=== PATIENT | male | born 1950 | race Caucasian/White ===

== ENCOUNTER 2017-12-22 16:04 | Inpatient (IN) ==
[2017-12-22] MEDS ORDERED: Sodium Chlor 0.9% Inj 500 ML IV.SIG ONE ×2 (17:16→18:15)
--- NOTE | 2017-12-22 17:22 | ED ---
HPI General Chief Complaint: Fever Stated Complaint: Weakness/fever Time Seen by Provider: 12/22/17 16:52 Source: patient, family, RN notes reviewed and old records reviewed Mode of arrival: ambulatory Limitations: no limitations History of Present Illness HPI Narrative: 67-year-old male presents to the emergency department for evaluation of generalized weakness, shortness of breath, abdominal pain, diarrhea, vomiting. Patient states he has been having diarrhea for several months. However, today, he started vomiting. He also reports abdominal pain that he states is from his diarrhea. Patient also reports cough and congestion as well. He states he had a fever up to 103. He went and saw his primary care physician approximately 1-2 hours prior to arrival who referred him to the emergency department. Patient does have history of A. fib on Pradaxa, CHF, diabetes. MD complaint: fever, malaise and weakness Onset (ago): day(s) Maximum Temperature: 103 F Temperature Source: oral Associated symptoms: chills, cough, shortness of breath, abdominal pain, nausea , vomiting and diarrhea Relieving factors: nothing Exacerbating factors: nothing Treatments prior to arrival fever: none Related Data Home Medications Medication Instructions Recorded Confirmed apixaban [Eliquis] 5 mg PO BID 12/22/17 12/22/17 atenolol [Tenormin] 50 mg PO DAILY 12/22/17 12/22/17 colchicine [Colcrys] 0.6 mg PO DAILY 12/22/17 12/22/17 loratadine [Claritin] 10 mg PO DAILY 12/22/17 12/22/17 metformin 500 mg PO BID 12/22/17 12/22/17 spironolacton-hydrochlorothiaz 1 tab PO DAILY 12/22/17 12/22/17 Allergies Allergy/AdvReac Type Severity Reaction Status Date / Time No Known Allergies Allergy Unverified 12/22/17 17:16 Review of Systems Except as stated in HPI: all other systems reviewed are negative [facility] Medical History Medical History Atrial fibrillation (Acute) Chronic kidney disease (Acute) Gout (Acute) Heart failure (Acute) Mitral valve insufficiency (Acute) Morbid obesity (Acute) Rhinitis (Acute) Type 2 diabetes mellitus (Acute) Social History Social History Substance History: No History of Abuse Second Hand Smoke Exposure: No Smoking Status: Never smoker Tobacco Type: Cigarettes How Often Do You Have a Drink Containing Alcohol: Monthly or less Recent Travel in [facility] within the Last 8 Weeks: No Recent Out of Country Travel within the Last 8 Weeks: No Exam Narrative Exam Narrative: GENERAL: Well-nourished, well-developed obese male patient, afebrile. SKIN: Focused skin assessment warm/dry. Patient does have erythema to the right lower extremity. Patient states that this is chronic. However, is warm to palpation HEAD: Normocephalic. Atraumatic EYES: No scleral icterus. No injection or drainage. NECK: Supple, trachea midline. No JVD or lymphadenopathy. CARDIOVASCULAR: Regular rate and rhythm without murmurs, gallops, or rubs. RESPIRATORY: Breath sounds equal bilaterally. No accessory muscle use. Lung sounds diminished GASTROINTESTINAL: Abdomen obese, soft. MUSCULOSKELETAL: No cyanosis, or edema. BACK: Nontender without obvious deformity. No CVA tenderness. Course Initial Documented Vital Signs Temperature 98.3 F 12/22/17 16:43 Pulse Rate 122 H 12/22/17 16:43 Respiratory Rate 24 12/22/17 16:43 Blood Pressure 138/60 12/22/17 16:43 Pulse Oximetry 96 12/22/17 16:43 Last Documented Vital Signs Temperature 98.6 F 12/23/17 04:00 Pulse Rate 92 H 12/23/17 04:00 Respiratory Rate 20 12/23/17 04:00 Blood Pressure 107/51 L 12/23/17 04:00 Pulse Oximetry 95 12/23/17 04:00 Critical Care Time Critical Care Time: Yes Total Critical Care Time: 30 Attestation: Time to perform other separately billable procedures was not included in the critical care time. My time did not include minutes spent treating any other patients simultaneously or on activities that did not directly contribute to the patient's treatment. The services I provided to this patient were to treat and/or prevent clinically significant deterioration due to sepsis I provided critical care services requiring my management, as noted below: Chart data review, documentation time, medication orders and management, vital sign assessments/reviewing monitor data, ordering and reviewing lab tests, ordering and interpreting/reviewing x-rays and diagnostic studies, care of the patient and discussion of the patient with the admitting physicians Medical Decision Making SUBHA Attestation SUBHA supervised visit: Yes Attestation: I, Dr. Soto, have reviewed the advance practice practitioner's documentation and am in agreement, met with the patient face to face, made the diagnosis, and the medical decision making was done by me. *My assessment and Findings: This patient presents with a chief complaint of fever. He looks dehydrated. Septic workup is in process. Please see Swati Mayorga NP's note for a more detailed H&P, final diagnosis and disposition MDM Narrative Medical decision making narrative: 67-year-old male presents to the emergency department for evaluation of diarrhea, vomiting, fever, shortness of breath. He is tachycardic in triage. He states he has had a fever up to 103 today. IV access established. EKG, CBC, CMP, lipase, magnesium, CK, troponin, lactic acid , PTT, PT/INR, UA, blood cultures 2 were ordered and pending. Chest x-ray and CT abdomen/pelvis with IV contrast are ordered and pending. Patient is given normal saline 500 mL bolus. He is not given 30 mL's per kilogram due to history of CHF. Patient is given Zofran 4 mg ODT. EKG shows atrial fibrillation, HR 122, right BBB. CBC shows leukocytosis 19.7, band neutrophils 35%, toxic granulation. CMP shows hyponatremia 129, BUN 38, creatinine 2.46, hyperglycemia 401. Lactic acid is 4.7. Magnesium is 1.2. CK is 48. Troponin is less than 0.02. PTT is 29.8. PT/INR is 11.1/1.1. UA is still pending. Chest x-ray shows mild to moderate cardiomegaly, no definite evidence of pneumonia. CT abdomen/pelvis shows no acute abnormality. Patient is given another NS 500 ml bolus and started on Vancomycin 1 gm IV, Zosyn 3.375 gm IV. Patient will be admitted. Differential Diagnosis Differential Diagnosis: sepsis vs. pneumonia vs. diverticulitis vs UTI Medical Records Medical records reviewed: Yes I reviewed the patient's medical records. Lab Data Result diagrams: 12/22/17 17:04 12/22/17 17:04 Lab Results 12/22/17 12/22/17 12/22/17 Range/Units 17:03 17:04 17:04 WBC 19.7 H (4.0-11.0) th/mm3 RBC 4.69 (4.50-5.90) mil/mm3 Hgb 14.4 (13.0-17.0) gm/dL Hct 42.5 (39.0-51.0) % MCV 90.5 (80.0-100.0) fL MCH 30.8 (27.0-34.0) pg MCHC 34.0 (32.0-36.0) % RDW 14.3 (11.6-17.2) % Plt Count 188 (150-450) th/mm3 MPV 8.8 (7.0-11.0) fL Prelim Diff (Auto) Manual diff required WBC Differential Manual diff final Seg Neuts % (Manual) 60 (16-70) % Band Neuts % (Manual) 35 H (0-6) % Lymphocytes % (Manual) 1 L (9-44) % Monocytes % (Manual) 4 (0-8) % Abs Neuts (Manual) 18.7 H (1.8-7.7) th/mm3 Differential Comment . Toxic Granulation 1+ H (None) Platelet Estimate Normal (Normal) Platelet Morphology Enlarged H (Normal) PT 11.1 (9.8-11.6) sec INR 1.1 Ratio APTT 29.8 (24.3-30.1) sec Sodium (136-145) meq/L Potassium (3.5-5.1) meq/L Chloride (98-107) meq/L Carbon Dioxide (21.0-32.0) meq/L Anion Gap (5-15) meq/L BUN (7-18) mg/dL Creatinine (0.60-1.30) mg/dL Estimated GFR (>89) mL/min POC Glucose 429 H (68-110) mg/dl Random Glucose (74-106) mg/dL Lactic Acid (0.4-2.0) mmol/L Calcium (8.5-10.1) mg/dL Magnesium (1.5-2.5) mg/dL Total Bilirubin (0.2-1.0) mg/dL AST (15-37) U/L ALT (12-78) U/L Alkaline Phosphatase (45-117) U/L Total Creatine Kinase (39-308) U/L Troponin I (0.02-0.05) ng/mL Total Protein (6.4-8.2) g/dL Albumin (3.4-5.0) g/dL Lipase (73-393) U/L Urine Color (Yellw/Straw) Urine Clarity (Clear) Urine pH (5.0-8.5) Ur Specific [place] (1.002-1.035) Urine Protein (Neg-Trace) mg/dL Urine Glucose (UA) (Negative) mg/dL Urine Ketones (Negative) mg/dL Urine Occult Blood (Negative) Urine Nitrate (Negative) Urine Bilirubin (Negative) Urine Urobilinogen (Less than 2) mg/dL Ur Leukocyte Esterase (Negative) Urine RBC (0-3) /hpf Urine WBC (0-5) /hpf Ur Squamous Epith Cells (0-5) /hpf Amorphous Sediment (None) /hpf Urine Bacteria (None) /hpf Granular Casts (None) /lpf Urine Mucus (Occasional) /lpf Micro UA Comment Urine Culture Comments Stl C.difficile Tox PCR (Negative) St C. diff Tox Epid 027 (Negative) 12/22/17 12/22/17 12/22/17 Range/Units 17:04 17:30 19:45 WBC (4.0-11.0) th/mm3 RBC (4.50-5.90) mil/mm3 Hgb (13.0-17.0) gm/dL Hct (39.0-51.0) % MCV (80.0-100.0) fL MCH (27.0-34.0) pg MCHC (32.0-36.0) % RDW (11.6-17.2) % Plt Count (150-450) th/mm3 MPV (7.0-11.0) fL Prelim Diff (Auto) WBC Differential Seg Neuts % (Manual) (16-70) % Band Neuts % (Manual) (0-6) % Lymphocytes % (Manual) (9-44) % Monocytes % (Manual) (0-8) % Abs Neuts (Manual) (1.8-7.7) th/mm3 Differential Comment Toxic Granulation (None) Platelet Estimate (Normal) Platelet Morphology (Normal) PT (9.8-11.6) sec INR Ratio APTT (24.3-30.1) sec Sodium 129 L (136-145) meq/L Potassium 4.6 (3.5-5.1) meq/L Chloride 93 L (98-107) meq/L Carbon Dioxide 22.2 (21.0-32.0) meq/L Anion Gap 14 (5-15) meq/L BUN 38 H (7-18) mg/dL Creatinine 2.46 H (0.60-1.30) mg/dL Estimated GFR 27 L (>89) mL/min POC Glucose (68-110) mg/dl Random Glucose 401 H (74-106) mg/dL Lactic Acid 4.7 H* 4.5 H* (0.4-2.0) mmol/L Calcium 9.0 (8.5-10.1) mg/dL Magnesium 1.2 L (1.5-2.5) mg/dL Total Bilirubin 0.8 (0.2-1.0) mg/dL AST 27 (15-37) U/L ALT 35 (12-78) U/L Alkaline Phosphatase 104 (45-117) U/L Total Creatine Kinase 48 (39-308) U/L Troponin I Less than 0.02 L (0.02-0.05) ng/mL Total Protein 7.9 (6.4-8.2) g/dL Albumin 3.6 (3.4-5.0) g/dL Lipase 149 (73-393) U/L Urine Color (Yellw/Straw) Urine Clarity (Clear) Urine pH (5.0-8.5) Ur Specific [place] (1.002-1.035) Urine Protein (Neg-Trace) mg/dL Urine Glucose (UA) (Negative) mg/dL Urine Ketones (Negative) mg/dL Urine Occult Blood (Negative) Urine Nitrate (Negative) Urine Bilirubin (Negative) Urine Urobilinogen (Less than 2) mg/dL Ur Leukocyte Esterase (Negative) Urine RBC (0-3) /hpf Urine WBC (0-5) /hpf Ur Squamous Epith Cells (0-5) /hpf Amorphous Sediment (None) /hpf Urine Bacteria (None) /hpf Granular Casts (None) /lpf Urine Mucus (Occasional) /lpf Micro UA Comment Urine Culture Comments Stl C.difficile Tox PCR (Negative) St C. diff Tox Epid 027 (Negative) 12/22/17 12/23/17 Range/Units 20:10 01:30 WBC (4.0-11.0) th/mm3 RBC (4.50-5.90) mil/mm3 Hgb (13.0-17.0) gm/dL Hct (39.0-51.0) % MCV (80.0-100.0) fL MCH (27.0-34.0) pg MCHC (32.0-36.0) % RDW (11.6-17.2) % Plt Count (150-450) th/mm3 MPV (7.0-11.0) fL Prelim Diff (Auto) WBC Differential Seg Neuts % (Manual) (16-70) % Band Neuts % (Manual) (0-6) % Lymphocytes % (Manual) (9-44) % Monocytes % (Manual) (0-8) % Abs Neuts (Manual) (1.8-7.7) th/mm3 Differential Comment Toxic Granulation (None) Platelet Estimate (Normal) Platelet Morphology (Normal) PT (9.8-11.6) sec INR Ratio APTT (24.3-30.1) sec Sodium (136-145) meq/L Potassium (3.5-5.1) meq/L Chloride (98-107) meq/L Carbon Dioxide (21.0-32.0) meq/L Anion Gap (5-15) meq/L BUN (7-18) mg/dL Creatinine (0.60-1.30) mg/dL Estimated GFR (>89) mL/min POC Glucose (68-110) mg/dl Random Glucose (74-106) mg/dL Lactic Acid (0.4-2.0) mmol/L Calcium (8.5-10.1) mg/dL Magnesium (1.5-2.5) mg/dL Total Bilirubin (0.2-1.0) mg/dL AST (15-37) U/L ALT (12-78) U/L Alkaline Phosphatase (45-117) U/L Total Creatine Kinase (39-308) U/L Troponin I (0.02-0.05) ng/mL Total Protein (6.4-8.2) g/dL Albumin (3.4-5.0) g/dL Lipase (73-393) U/L Urine Color [place] (Yellw/Straw) Urine Clarity Cloudy H (Clear) Urine pH 5.0 (5.0-8.5) Ur Specific [place] 1.018 (1.002-1.035) Urine Protein 30 H (Neg-Trace) mg/dL Urine Glucose (UA) 500 or greater (Negative) mg/dL Urine Ketones Trace (Negative) mg/dL Urine Occult Blood Small H (Negative) Urine Nitrate Negative (Negative) Urine Bilirubin Negative (Negative) Urine Urobilinogen Less than 2 (Less than 2) mg/dL Ur Leukocyte Esterase Negative (Negative) Urine RBC 5 H (0-3) /hpf Urine WBC 5 (0-5) /hpf Ur Squamous Epith Cells <1 (0-5) /hpf Amorphous Sediment Few H (None) /hpf Urine Bacteria Rare H (None) /hpf Granular Casts 3 (None) /lpf Urine Mucus Few H (Occasional) /lpf Micro UA Comment Culture not ind Urine Culture Comments Culture not ind Stl C.difficile Tox PCR Negative (Negative) St C. diff Tox Epid 027 Negative (Negative) Imaging Data Radiologist's impression: Abdomen/Pelvis CT 12/22/17 17:16 CONCLUSION: Chest X-Ray 12/22/17 17:16 CONCLUSION: ECG Data EKG Prior to Arrival: No Attestation: I personally reviewed and interpreted this ECG as follows: Discharge Plan Discharge Disposition Patient Disposition: 30 Still Patient Discharge Details Diagnosis: Sepsis, Cellulitis, Abdominal pain, vomiting, and diarrhea Physicians Team ED Provider: Salome Soto ED Midlevel Provider: Swati Mayorga Primary Care Provider: Patsy Ernst Attending Provider: Merlyn Driscoll Status ED Status: Left Department Discharge Information Discharge Date/Time: 12/22/17 22:51
[2017-12-22 17:44] LABS: Hematocrit 42.5 % (39.0-51.0); Hemoglobin 14.4 gm/dL (13.0-17.0); Mean Corpuscular Hemoglobin 30.8 pg (27.0-34.0); Mean Corpuscular Volume 90.5 fL (80.0-100.0); Mean Platelet Volume 8.8 fL (7.0-11.0); Platelet Count 188 th/mm3 (150-450); Red Blood Count 4.69 mil/mm3 (4.50-5.90); Red Cell Distribution Width 14.3 % (11.6-17.2); White Blood Count 19.7 th/mm3 (4.0-11.0)
[2017-12-22 17:50] LABS: Activated Partial Thrombo Time 29.8 sec (24.3-30.1); INR 1.1 Ratio; Prothrombin Time 11.1 sec (9.8-11.6)
--- NOTE | 2017-12-22 17:57 | XR ---
EXAM DATE: 12/22/2017 5:55 PM EDT AGE/SEX: 67 years / Male INDICATIONS: Fever starting today CLINICAL DATA: This is the patient's initial encounter. Patient reports that signs and symptoms have been present for 1 day and indicates a pain score of 0/10. MEDICAL/SURGICAL HISTORY: None. None. COMPARISON: No prior exams available for comparison. FINDINGS: 2 AP portable erect views of the chest were obtained and demonstrate mild to moderate cardiomegaly. N o focal infiltrate or effusion is identified. There are atherosclerotic changes in the aorta. The bon y thorax is intact. CONCLUSION: 1. Mild to moderate cardiomegaly. 2. No definite evidence of pneumonia. Electronically signed by: Johnny Amaro MD 12/22/2017 5:56 PM EDT
[2017-12-22 18:09] LABS: Alanine Aminotransferase 35 U/L (12-78); Albumin 3.6 g/dL (3.4-5.0); Alkaline Phosphatase 104 U/L (45-117); Anion Gap 14 meq/L (5-15); Aspartate Aminotransferase 27 U/L (15-37); Blood Urea Nitrogen 38 mg/dL (7-18); Carbon Dioxide 22.2 meq/L (21.0-32.0); Chloride 93 meq/L (98-107); Glomerular Filtration Rate 27 mL/min (>89); Glucose,Random 401 mg/dL (74-106); Lipase 149 U/L (73-393); Magnesium 1.2 mg/dL (1.5-2.5); Potassium 4.6 meq/L (3.5-5.1); Sodium 129 meq/L (136-145); Total Protein 7.9 g/dL (6.4-8.2)
[2017-12-22 18:12] LABS: Creatine Kinase 48 U/L (39-308)
[2017-12-22] MEDS ORDERED: Vancomycin Inj 1,000 MG in Sodium Chlor 0.9% Inj 250 ML IV.SIG ONE (18:16)
[2017-12-22] MEDS ORDERED: Piperacil/Tazo 3.375 GM Premix 50 ML IV.SIG ONE (18:16)
[2017-12-22 18:43] LABS: Lymphocytes 1 % (9-44); Monocytes 4 % (0-8); Toxic Granulation 1+
[2017-12-22 18:44] LABS: Platelet Estimate Normal (Normal)
[2017-12-22] MEDS ORDERED: Vancomycin Inj 1 GM/200 ML PIGGYBACK IV.SIG ONE (18:50)
--- NOTE | 2017-12-22 20:03 | CT ---
EXAM DATE: 12/22/2017 7:05 PM EDT AGE/SEX: 67 years / Male INDICATIONS: Abdominal pain, vomiting for four months. CLINICAL DATA: This is the patient's initial encounter. Patient reports that signs and symptoms have been present for 4 - 6 months and indicates a pain score of 4/10. MEDICAL/SURGICAL HISTORY: Congestive heart failure. Cardiovascular disease. Diabetes. None. RADIATION DOSE: 35.53 CTDI (mGy) ; Patient body habitus COMPARISON: No prior exams available for comparison. TECHNIQUE: Multiple contiguous axial images were obtained through the abdomen. Images were obtained using multiple row detector helical technique. Using automated exposure control and adjustment of the mA and/or kV according to patient size, radiation dose was kept as low as reasonably achievable to o btain optimal diagnostic quality images. DICOM format image data is available electronically for rev iew and comparison. FINDINGS: Lower Lungs: There is linear density at the lateral left base likely related to scarring or atelectas is. Liver: Is diffuse decreased attenuation to the liver. No focal hepatic lesions are seen. The gallblad yesica is unremarkable. Spleen: Homogeneous density without enlargement. Pancreas: Unremarkable without mass or calcification. Kidneys: There is a 3.3 cm exophytic mass off the posterior mid right kidney. There also appears to be a 2.6 cm low-density mass at the inferior aspect of the left kidney best seen on the coronal image s. There is a 5.5 cm mass at the lateral mid to inferior left kidney. No hydronephrosis is seen on ei ther side. No renal stones are seen. Adrenal Glands: Unremarkable. Aorta: The aorta and proximal iliac vessels are grossly unremarkable without aneurysmal dilation. Atherosclerotic calcifications are present. Bowel/Mesentery: Scattered colonic diverticula especially in the sigmoid region. Abdominal Wall: Intact. Retroperitoneum: No evidence of adenopathy in the retrocrural, para-aortic, or deep pelvic regions. Normal-sized lymph nodes are seen. Bladder: Contours are smooth. Reproductive Organs: No abnormal masses or calcifications seen. Inguinal: There is fat within the inguinal canal regions bilaterally being more prominent on the rig ht than the left. No bowel seen in these regions. Bony Structures: There is degenerative change in the lumbar spine. There is a 4.1 cm lipoma seen in the proximal lateral left thigh musculature. 1. No acute abnormality seen. 2. Hepatic steatosis. 3. Bilateral renal masses. These are nonspecific on this noncontrast CT examination. They may repres ent cysts. They could be further evaluated some point within ultrasound examination or contrast-enhan saleem study. This could be performed as an outpatient. 4. Scattered colonic diverticula. 5. Prominent fat within the inguinal canals which could suggest hernias. No bowel is seen in these r egions. Electronically signed by: Macario Marquez MD 12/22/2017 8:02 PM EDT
[2017-12-22] MEDS ORDERED: Acetaminophen 325 MG Tablet PO PRN (21:53)
[2017-12-22] MEDS ORDERED: Dextrose 50% in Water 50 ML Vial IV.PUSH PRN (21:57)
[2017-12-22] MEDS ORDERED: Vancomycin Consult Pharmacy 1 EACH OTHER SCH (22:00)
[2017-12-22] MEDS ORDERED: Mag Sulf 1 gm/100 ml Premix 100 ML IV.SIG ONE (22:00)
[2017-12-22] MEDS ORDERED: Heparin - SQ 10,000 UNITS/ML Vial SQ SCH (22:00)
--- NOTE | 2017-12-22 22:03 | ECG ---
Date Performed: 12/22/2017 Time Performed: 17:06:48 PTAGE: 67 years EKG: ATRIAL FIBRILLATION WITH RAPID VENTRICULAR RESPONSE INDETERMINATE AXIS RIGHT BUNDLE BRANCH BLOCK ABNORMAL ECG NO PREVIOUS TRACING DOCTOR: Mitchell Thomas Interpretating Date/Time 12/22/2017 22:02:03
--- NOTE | 2017-12-22 23:22 | P.HP ---
History of Present Illness Service: [facility] Primary Care Physician: Patsy Ernst MD History of Present Illness: 67-year-old male with a past medical history significant for atrial fibrillation , anticoagulated on Eliquis, chronic kidney disease, gout, CHF and type 2 diabetes mellitus presents to the emergency department for evaluation of generalized weakness, shortness of breath, abdominal pain, diarrhea and vomiting. Patient reports he has had diarrhea for several months however today he started vomiting. He reports a crampy abdominal pain that is associated with his diarrhea. He also complains of a cough and congestion with associated shortness of breath. He reports a fever at home to 103. He saw his primary care physician today who recommended further evaluation in the emergency department. The patient denies any chest pain. Inpatient Certification: I certify that the inpatient services were ordered in accordance with Medicare regulations governing the order. This includes certification that hospital inpatient services are reasonable and necessary and in the case of services not specified as inpatient-only under 42 CFR 419.22(n), that they are appropriately provided as inpatient services in accordance to with the 2-midnight benchmark under 43 CFR 412.3(e) Estimated Total Length of Stay (Days): 2 Plans for Post Hospital Care: Home Review of Systems All other systems reviewed negative except as stated in HPI [facility] - History History Provided By: Patient - Medical History Medical History: Medical History (Last Updated 12/22/17 @ 19:15 by Maral Mancuso) Atrial fibrillation Chronic kidney disease Gout Heart failure Mitral valve insufficiency Morbid obesity Rhinitis Type 2 diabetes mellitus - Tobacco History Second Hand Smoke Exposure: No Tobacco Use In Past 30 Days: No Smoking Status: Never smoker Tobacco Type: Cigarettes - Alcohol History How Often Do You Have a Drink Containing Alcohol: Monthly or less - Substance Use History Substance History: No History of Abuse - Substance Use Type Marijuana Status: Active - Travel History Recent Travel in the [place] Within the Last 8 Weeks: No Recent Travel Out of the Country Within the Last 8 Weeks: No - Immunization History Tetanus Immunization: Unsure Hx Influenza Vaccine This Season: Yes Medications and Allergies Active Medications: Active Medications Acetaminophen (Tylenol) 650 mg PO Q4H PRN PRN Reason: Temp > 100.4 Apixaban (Eliquis) 5 mg PO BID [facility] Atenolol (Tenormin) 50 mg PO DAILY [facility] Colchicine (Colcrys) 0.6 mg PO DAILY [facility] Dextrose (D50w Vial) 50 ml IV.PUSH UNSCH PRN PRN Reason: PER HYPOGLYCEMIA PROTOCOL Glucagon (Glucagon Inj) 1 mg OTHER PRN PRN PRN Reason: for Hypoglycemia Protocol HCTZ/Spironolactone (Aldactazide 25/25 Mg) 1 tab PO DAILY [facility] Piperacillin/Tazobactam/Dextrose (Zosyn 3.375 Gm Premix) 50 mls @ 100 mls/hr IV.SIG Q6H [facility] Pharmacy Profile Note (Vancomycin Consult Pharmacy) 0 mls @ 0 mls/hr OTHER UNSCH [facility] Vancomycin HCl 2,000 mg/ (Sodium Chloride) 520 mls @ 250 mls/hr IV.SIG Q24H [facility] Sodium Chloride (Ns Inj) 1,000 mls @ 100 mls/hr IV.CONT .Q10H [facility] Insulin Aspart (Novolog Insulin Correctional Sugar Inj) 0 unit SQ ACHS [facility]; Protocol Loratadine (Claritin) 10 mg PO DAILY [facility] Miscellaneous Information ([facility] Ordered Lab Info) 0 each OTHER ONCE ONE Stop: 12/25/17 07:46 Ondansetron HCl (Zofran Odt) 4 mg PO Q6H PRN PRN Reason: NAUSEA OR VOMITING Allergies Allergy/AdvReac Type Severity Reaction Status Date / Time No Known Allergies Allergy Unverified 12/22/17 17:16 Home Medications Medication Instructions Recorded Confirmed Type apixaban [Eliquis] 5 mg PO BID 12/22/17 12/22/17 History atenolol [Tenormin] 50 mg PO DAILY 12/22/17 12/22/17 History colchicine [Colcrys] 0.6 mg PO DAILY 12/22/17 12/22/17 History loratadine [Claritin] 10 mg PO DAILY 12/22/17 12/22/17 History metformin 500 mg PO BID 12/22/17 12/22/17 History spironolacton-hydrochlorothiaz 1 tab PO DAILY 12/22/17 12/22/17 History Exam Vital signs: Vital Signs 12/22/17 16:43 12/22/17 17:00 12/22/17 17:16 Temperature 98.3 F 98 F Pulse Rate 122 H 127 H Respiratory Rate 24 20 Blood Pressure 138/60 116/62 Pulse Oximetry 96 92 L 92 L 12/22/17 18:00 12/22/17 20:00 12/22/17 20:52 Temperature 98.7 F Pulse Rate 89 126 H Respiratory Rate 19 20 Blood Pressure 133/60 132/68 Pulse Oximetry 95 95 12/22/17 21:00 Temperature Pulse Rate 120 H Respiratory Rate 20 Blood Pressure 119/57 L Pulse Oximetry 96 Intake & Output 12/22/17 12/22/17 12/23/17 06:59 18:59 06:59 Weight 154.221 kg Narrative: Gen.: No acute distress Head: Normocephalic. Atraumatic. EENT: Pupils equal round and reactive to light. Nose without drainage. Airway intact. Throat without injection. Cardiovascular: Regular rate and rhythm. No murmurs, rubs or gallops. Respiratory: Lungs clear to auscultation bilaterally. No wheezes or rhonchi. Abdomen: Soft, diffusely tender to palpation, nondistended. No peritoneal signs. Musculoskeletal: No gross deformities. No edema. Skin: No obvious rashes or erythema. Neuro: Sensory and motor grossly intact. Cranial nerves II through XII grossly intact. Psych: Appropriate mood and affect Results - Labs CBC & Chem 7: 12/22/17 17:04 12/22/17 17:04 Labs: Laboratory Results - last 24 hr 12/22/17 12/22/17 12/22/17 17:03 17:04 17:04 WBC 19.7 H RBC 4.69 Hgb 14.4 Hct 42.5 MCV 90.5 MCH 30.8 MCHC 34.0 RDW 14.3 Plt Count 188 MPV 8.8 Prelim Diff (Auto) Manual diff required WBC Differential Manual diff final Seg Neuts % (Manual) 60 Band Neuts % (Manual) 35 H Lymphocytes % (Manual) 1 L Monocytes % (Manual) 4 Abs Neuts (Manual) 18.7 H Differential Comment . Toxic Granulation 1+ H Platelet Estimate Normal Platelet Morphology Enlarged H PT 11.1 INR 1.1 APTT 29.8 Sodium Potassium Chloride Carbon Dioxide Anion Gap BUN Creatinine Estimated GFR POC Glucose 429 H Random Glucose Lactic Acid Calcium Magnesium Total Bilirubin AST ALT Alkaline Phosphatase Total Creatine Kinase Troponin I Total Protein Albumin Lipase Stl C.difficile Tox PCR St C. diff Tox Epid 027 12/22/17 12/22/17 12/22/17 17:04 17:30 19:45 WBC RBC Hgb Hct MCV MCH MCHC RDW Plt Count MPV Prelim Diff (Auto) WBC Differential Seg Neuts % (Manual) Band Neuts % (Manual) Lymphocytes % (Manual) Monocytes % (Manual) Abs Neuts (Manual) Differential Comment Toxic Granulation Platelet Estimate Platelet Morphology PT INR APTT Sodium 129 L Potassium 4.6 Chloride 93 L Carbon Dioxide 22.2 Anion Gap 14 BUN 38 H Creatinine 2.46 H Estimated GFR 27 L POC Glucose Random Glucose 401 H Lactic Acid 4.7 H* 4.5 H* Calcium 9.0 Magnesium 1.2 L Total Bilirubin 0.8 AST 27 ALT 35 Alkaline Phosphatase 104 Total Creatine Kinase 48 Troponin I Less than 0.02 L Total Protein 7.9 Albumin 3.6 Lipase 149 Stl C.difficile Tox PCR St C. diff Tox Epid 027 12/22/17 20:10 WBC RBC Hgb Hct MCV MCH MCHC RDW Plt Count MPV Prelim Diff (Auto) WBC Differential Seg Neuts % (Manual) Band Neuts % (Manual) Lymphocytes % (Manual) Monocytes % (Manual) Abs Neuts (Manual) Differential Comment Toxic Granulation Platelet Estimate Platelet Morphology PT INR APTT Sodium Potassium Chloride Carbon Dioxide Anion Gap BUN Creatinine Estimated GFR POC Glucose Random Glucose Lactic Acid Calcium Magnesium Total Bilirubin AST ALT Alkaline Phosphatase Total Creatine Kinase Troponin I Total Protein Albumin Lipase Stl C.difficile Tox PCR Negative St C. diff Tox Epid 027 Negative - Imaging Impressions Abdomen/Pelvis CT 12/22/17 17:16 CONCLUSION: Chest X-Ray 12/22/17 17:16 CONCLUSION: Caprini VTE Risk Assessment Caprini VTE Risk Assessment: Moderate/High Risk (score >= 2) Caprini Risk Assessment Model: Point Value = 1 Point Value = 2 Point Value = 3 Point Value = 5 Age 41-60 Minor surgery BMI > 25 kg/m2 Swollen legs Varicose veins or History of unexplained or recurrent spontaneous Oral contraceptives or hormone replacement Sepsis (< 1 month) Serious lung disease, including pneumonia (< 1 month) Abnormal pulmonary function Acute myocardial infarction Congestive heart failure (< 1 month) History of inflammatory bowel disease Medical patient at bed rest Age 61-74 Arthroscopic surgery Major open surgery (> 45 min) Laparoscopic surgery (> 45 min) Malignancy Confined to bed (> 72 hours) Immobilizing plaster cast Central venous access Age >= 75 History of VTE Family history of VTE Factor V Leiden Prothrombin [id number] Lupus anticoagulant Anticardiolipin antibodies Elevated serum homocysteine Heparin-induced thrombocytopenia Other congenital or acquired thrombophilia Stroke (< 1 month) Elective arthroplasty Hip, pelvis, or leg fracture Acute spinal cord injury (< 1 month) Prophylaxis Regimen: Total Risk Factor Score Risk Level Prophylaxis Regimen 0-1 Low Early ambulation 2 Moderate Order ONE of the following: *Sequential Compression Device (SCD) *Heparin 5000 units SQ BID 3-4 Higher Order ONE of the following medications: *Heparin 5000 units SQ TID *Enoxaparin/Lovenox 40 mg SQ daily (WT < 150 kg, CrCl > 30 mL/min) *Enoxaparin/Lovenox 30 mg SQ daily (WT < 150 kg, CrCl > 10-29 mL/min) *Enoxaparin/Lovenox 30 mg SQ BID (WT < 150 kg, CrCl > 30 mL/min) AND/OR *Sequential Compression Device (SCD) 5 or more Highest Order ONE of the following medications: *Heparin 5000 units SQ TID (Preferred with Epidurals) *Enoxaparin/Lovenox 40 mg SQ daily (WT < 150 kg, CrCl > 30 mL/min) *Enoxaparin/Lovenox 30 mg SQ daily (WT < 150 kg, CrCl > 10-29 mL/min) *Enoxaparin/Lovenox 30 mg SQ BID (WT < 150 kg, CrCl > 30 mL/min) AND *Sequential Compression Device (SCD) Assessment and Plan - Plan Assessment/plan: 1. Sepsis Patient with leukocytosis, elevated lactic acid, tachycardia CT of the abdomen/pelvis negative for acute process Chest x-ray significant for cardiomegaly without acute process, personally reviewed C. difficile negative UA pending Vancomycin/Zosyn Blood cultures pending Repeat lactic acid pending IV fluid hydration 2. Atrial fibrillation Continue home Eliquis Continue atenolol 3. Diabetes mellitus Holding home metformin Sliding-scale insulin Monitor blood glucose 4. CHF Continue spironolactone Echo pending as patient does not have a previous echo in the system and EF is unknown FEN Cardiac diet Electrolytes: Monitor and replete as needed NS at 100 cc/hour Eliquis
[2017-12-23] MEDS: Sod Chloride 0.9% Inj 1,000 ML IV.CONT SCH ×2 (00:40→15:57)
[2017-12-23] MEDS: Piperacil/Tazo 3.375 GM Premix 50 ML IV.SIG SCH ×4 (01:15→18:09)
[2017-12-23 02:13] LABS: Amorphous Sediment,Urine Few /hpf; Bacteria,Urine Rare /hpf; Bilirubin,Urine Negative (Negative); Clarity,Urine Cloudy (Clear); Color,Urine Amber (Yellw/Straw); Glucose,Urine (UA) 500 or Greater mg/dL (Negative); Leukocyte Esterase,Urine Negative (Negative); Mucus,Urine Few /lpf (Occasional); Nitrite,Urine Negative (Negative); Specific Gravity,Urine 1.018 (1.002-1.035); Squamous Epithelial Cell,Urine <1 /hpf (0-5)
[2017-12-23] MEDS ORDERED: Vancomycin Inj 2,000 MG in Sodium Chlor 0.9% Inj 500 ML IV.SIG SCH (08:00)
[2017-12-23] MEDS: Atenolol 50 MG Tablet PO SCH (08:22)
[2017-12-23] MEDS: Loratadine 10 MG Tablet PO SCH (08:23)
[2017-12-23] MEDS: Insulin NovoLOG Aspart Correctional Sugar Inj SQ SCH ×4 (08:40→22:33)
[2017-12-23 09:54] LABS: Baso % (Auto) 0.2 % (0.0-2.0); Hematocrit 36.9 % (39.0-51.0); Hemoglobin 12.3 gm/dL (13.0-17.0); Lymph # (Auto) 0.7 th/mm3 (1.0-4.8); Lymph % (Auto) 3.8 % (9.0-44.0); Mean Corpuscular HGB Conc 33.3 % (32.0-36.0); Mean Corpuscular Hemoglobin 30.1 pg (27.0-34.0); Mean Corpuscular Volume 90.2 fL (80.0-100.0); Mean Platelet Volume 8.7 fL (7.0-11.0); Mono % (Auto) 5.9 % (0.0-8.0); Neut # (Auto) 15.7 th/mm3 (1.8-7.7); Neut % (Auto) 90.1 % (16.0-70.0); Platelet Count 152 th/mm3 (150-450); Red Blood Count 4.09 mil/mm3 (4.50-5.90); Red Cell Distribution Width 14.8 % (11.6-17.2); White Blood Count 17.4 th/mm3 (4.0-11.0)
[2017-12-23 09:55] LABS: Calcium 8.1 mg/dL (8.5-10.1); Carbon Dioxide 19.6 meq/L (21.0-32.0); Potassium 4.5 meq/L (3.5-5.1)
[2017-12-23] MEDS: HCTZ PO SCH (10:20)
[2017-12-23] MEDS: SPIRONOLACTONE PO SCH (10:20)
--- NOTE | 2017-12-23 11:36 | P.PNIM ---
Subjective Interval history: Patient complained of nausea and poor appetite. He is not sure if the right lower leg is more red than normal. He reports having Parker swollen ankles than normal. He reports no chest pain or shortness of breath nor coughing. Physical Exam Vital signs: Vital Signs 12/22/17 16:43 12/22/17 17:00 12/22/17 17:16 Temperature 98.3 F 98 F Pulse Rate 122 H 127 H Respiratory Rate 24 20 Blood Pressure 138/60 116/62 Pulse Oximetry 96 92 L 92 L 12/22/17 18:00 12/22/17 20:00 12/22/17 20:52 Temperature 98.7 F Pulse Rate 89 126 H Respiratory Rate 19 20 Blood Pressure 133/60 132/68 Pulse Oximetry 95 95 12/22/17 21:00 12/22/17 22:20 12/23/17 00:00 Temperature 97.5 F L 97.6 F Pulse Rate 120 H 102 H 105 H Respiratory Rate 20 20 20 Blood Pressure 119/57 L 115/64 112/55 L Pulse Oximetry 96 94 L 94 L 12/23/17 04:00 12/23/17 08:00 Temperature 98.6 F 97.6 F Pulse Rate 92 H 94 H Respiratory Rate 20 20 Blood Pressure 107/51 L 110/62 Pulse Oximetry 95 95 Intake & Output 12/22/17 12/23/17 12/23/17 18:59 06:59 18:59 Intake Total 530 / 530 Output Total 250 / 250 Balance 280 / 280 Weight 154.221 kg 157.6 kg Intake: IV 50 / 50 Zosyn 3.375 GM Premix 50 ML @ 50 / 50 100 mls/hr IV.SIG Q6H [facility] Rx#: [id number] Oral 480 / 480 Output: Urine 250 / 250 Other: Date of Last Bowel Movement 12/22/17 # Bowel Movements 0 Narrative: GENERAL: This is a well-nourished, obese well-developed patient, in no apparent distress. CARDIOVASCULAR: Regular rate and rhythm RESPIRATORY: Relatively clear to auscultation. Breath sounds equal bilaterally. No wheezes, rales, or rhonchi. GASTROINTESTINAL: Abdomen soft, non-tender, nondistended. Normal active bowel sounds MUSCULOSKELETAL: Extremities without clubbing, cyanosis, trace to 1+ edema Skin: Bilateral venous stasis dermatitis changes in the lower extremity with redness of the right anterior tibial area NEURO: Alert & Oriented x4 to person, place, time, situation. Moves all ext x4 Results - Labs CBC & Chem 7: 12/23/17 08:55 12/23/17 08:55 Laboratory Results - last 24 hr 12/22/17 12/22/17 12/22/17 17:03 17:04 17:04 WBC 19.7 H RBC 4.69 Hgb 14.4 Hct 42.5 MCV 90.5 MCH 30.8 MCHC 34.0 RDW 14.3 Plt Count 188 MPV 8.8 Prelim Diff (Auto) Manual diff required Neut % (Auto) Lymph % (Auto) Grainger % (Auto) Eos % (Auto) Baso % (Auto) Neut # (Auto) Lymph # (Auto) Grainger # (Auto) Eos # (Auto) Baso # (Auto) WBC Differential Manual diff final Seg Neuts % (Manual) 60 Band Neuts % (Manual) 35 H Lymphocytes % (Manual) 1 L Monocytes % (Manual) 4 Abs Neuts (Manual) 18.7 H Differential Comment . Toxic Granulation 1+ H Platelet Estimate Normal Platelet Morphology Enlarged H PT 11.1 INR 1.1 APTT 29.8 Sodium Potassium Chloride Carbon Dioxide Anion Gap BUN Creatinine Estimated GFR POC Glucose 429 H Random Glucose Lactic Acid Calcium Magnesium Total Bilirubin AST ALT Alkaline Phosphatase Total Creatine Kinase Troponin I B-Natriuretic Peptide Total Protein Albumin Lipase Urine Color Urine Clarity Urine pH Ur Specific [place] Urine Protein Urine Glucose (UA) Urine Ketones Urine Occult Blood Urine Nitrate Urine Bilirubin Urine Urobilinogen Ur Leukocyte Esterase Urine RBC Urine WBC Ur Squamous Epith Cells Amorphous Sediment Urine Bacteria Granular Casts Urine Mucus Micro UA Comment Urine Culture Comments Stl C.difficile Tox PCR St C. diff Tox Epid 027 12/22/17 12/22/17 12/22/17 17:04 17:30 19:45 WBC RBC Hgb Hct MCV MCH MCHC RDW Plt Count MPV Prelim Diff (Auto) Neut % (Auto) Lymph % (Auto) [place]inger % (Auto) Eos % (Auto) Baso % (Auto) Neut # (Auto) Lymph # (Auto) Grainger # (Auto) Eos # (Auto) Baso # (Auto) WBC Differential Seg Neuts % (Manual) Band Neuts % (Manual) Lymphocytes % (Manual) Monocytes % (Manual) Abs Neuts (Manual) Differential Comment Toxic Granulation Platelet Estimate Platelet Morphology PT INR APTT Sodium 129 L Potassium 4.6 Chloride 93 L Carbon Dioxide 22.2 Anion Gap 14 BUN 38 H Creatinine 2.46 H Estimated GFR 27 L POC Glucose Random Glucose 401 H Lactic Acid 4.7 H* 4.5 H* Calcium 9.0 Magnesium 1.2 L Total Bilirubin 0.8 AST 27 ALT 35 Alkaline Phosphatase 104 Total Creatine Kinase 48 Troponin I Less than 0.02 L B-Natriuretic Peptide Total Protein 7.9 Albumin 3.6 Lipase 149 Urine Color Urine Clarity Urine pH Ur Specific [place] Urine Protein Urine Glucose (UA) Urine Ketones Urine Occult Blood Urine Nitrate Urine Bilirubin Urine Urobilinogen Ur Leukocyte Esterase Urine RBC Urine WBC Ur Squamous Epith Cells Amorphous Sediment Urine Bacteria Granular Casts Urine Mucus Micro UA Comment Urine Culture Comments Stl C.difficile Tox PCR St C. diff Tox Epid 027 12/22/17 12/23/17 12/23/17 20:10 01:30 08:17 WBC RBC Hgb Hct MCV MCH MCHC RDW Plt Count MPV Prelim Diff (Auto) Neut % (Auto) Lymph % (Auto) [place]inger % (Auto) Eos % (Auto) Baso % (Auto) Neut # (Auto) Lymph # (Auto) Grainger # (Auto) Eos # (Auto) Baso # (Auto) WBC Differential Seg Neuts % (Manual) Band Neuts % (Manual) Lymphocytes % (Manual) Monocytes % (Manual) Abs Neuts (Manual) Differential Comment Toxic Granulation Platelet Estimate Platelet Morphology PT INR APTT Sodium Potassium Chloride Carbon Dioxide Anion Gap BUN Creatinine Estimated GFR POC Glucose 481 H* Random Glucose Lactic Acid Calcium Magnesium Total Bilirubin AST ALT Alkaline Phosphatase Total Creatine Kinase Troponin I B-Natriuretic Peptide Total Protein Albumin Lipase Urine Color Rossy Urine Clarity Cloudy H Urine pH 5.0 Ur Specific [place] 1.018 Urine Protein 30 H Urine Glucose (UA) 500 or greater Urine Ketones Trace Urine Occult Blood Small H Urine Nitrate Negative Urine Bilirubin Negative Urine Urobilinogen Less than 2 Ur Leukocyte Esterase Negative Urine RBC 5 H Urine WBC 5 Ur Squamous Epith Cells <1 Amorphous Sediment Few H Urine Bacteria Rare H Granular Casts 3 Urine Mucus Few H Micro UA Comment Culture not ind Urine Culture Comments Culture not ind Stl C.difficile Tox PCR Negative St C. diff Tox Epid 027 Negative 12/23/17 12/23/17 12/23/17 08:55 08:55 08:55 WBC 17.4 H RBC 4.09 L Hgb 12.3 L D Hct 36.9 L MCV 90.2 MCH 30.1 MCHC 33.3 RDW 14.8 Plt Count 152 MPV 8.7 Prelim Diff (Auto) Neut % (Auto) 90.1 H Lymph % (Auto) 3.8 L Grainger % (Auto) 5.9 Eos % (Auto) 0.0 Baso % (Auto) 0.2 Neut # (Auto) 15.7 H Lymph # (Auto) 0.7 L Grainger # (Auto) 1.0 H Eos # (Auto) 0.0 Baso # (Auto) 0.0 WBC Differential . Seg Neuts % (Manual) Band Neuts % (Manual) Lymphocytes % (Manual) Monocytes % (Manual) Abs Neuts (Manual) Differential Comment Auto diff final Toxic Granulation Platelet Estimate Platelet Morphology PT INR APTT Sodium 127 L Potassium 4.5 Chloride 95 L Carbon Dioxide 19.6 L Anion Gap 12 BUN 44 H Creatinine 2.72 H Estimated GFR 24 L POC Glucose Random Glucose 435 H Lactic Acid Calcium 8.1 L D Magnesium Total Bilirubin AST ALT Alkaline Phosphatase Total Creatine Kinase Troponin I B-Natriuretic Peptide 152 H Total Protein Albumin Lipase Urine Color Urine Clarity Urine pH Ur Specific [place] Urine Protein Urine Glucose (UA) Urine Ketones Urine Occult Blood Urine Nitrate Urine Bilirubin Urine Urobilinogen Ur Leukocyte Esterase Urine RBC Urine WBC Ur Squamous Epith Cells Amorphous Sediment Urine Bacteria Granular Casts Urine Mucus Micro UA Comment Urine Culture Comments Stl C.difficile Tox PCR St C. diff Tox Epid 027 Microbiology 12/22/17 17:25 Blood - Peripheral Aerobic Blood Culture - Preliminary gram positive cocci 12/22/17 17:25 Blood - Peripheral Anaerobic Blood Culture - Preliminary gram positive cocci 12/22/17 17:05 Blood - Peripheral Aerobic Blood Culture - Preliminary gram positive cocci 12/22/17 17:05 Blood - Peripheral Anaerobic Blood Culture - Preliminary gram positive cocci - Imaging Impressions Abdomen/Pelvis CT 12/22/17 17:16 CONCLUSION: Chest X-Ray 12/22/17 17:16 CONCLUSION: Assessment and Plan - Plan 1. Septic shock based on lactic acid greater than 4 on admission with leukocytosis Patient with leukocytosis, elevated lactic acid, tachycardia CT of the abdomen/pelvis negative for acute process Chest x-ray significant for cardiomegaly without acute process, C. difficile negative UA pending Continue vancomycin/Zosyn Blood cultures shows gram-positive cocci and will obtain an infectious disease consultation Repeat lactic acid shows levels trending down IV fluid hydration Questionable source? Unknown due to cellulitis versus other source. Await final blood cultures. 2. Atrial fibrillation for rate control Continue home Eliquis Continue atenolol 3. Diabetes mellitus type II uncontrolled Holding home metformin due to acute renal failure Sliding-scale insulin start long acting insulin Monitor blood glucose 4. CHF Continue spironolactone Echo pending as patient does not have a previous echo in the system and EF is unknown 5. Acute kidney injury superimposed on chronic kidney disease stage IVstop metformin. Avoid all nephrotoxins. Monitor with IV fluid hydration, component of prerenal likely due to patient's nausea vomiting and underlying sepsis. 6 DVT prophylaxis Eliquis 7. Diarrhea with intractable nausea vomiting unknown if patient has a component of diabetic gastroparesisCT of the abdomen pelvis negative will obtain a GI consultation.
--- NOTE | 2017-12-23 14:34 | P.CONGI ---
History of Present Illness Consult date: 12/23/17 Consult reason: Sepsis, N/V/diarrhea Chief complaint: Sepsis, cellulitis History of Present Illness: This is a 67 yo M with PMH significant for DM, CKD, a-fib anticoagulated with Eliquis, CHF, and obesity who presented to the ER yesterday. Pt states he has not been feeling well for the past week, endorses fever, chills, dizziness and SOB. He went to see his PCP Dr. Ernst yesterday who told him to go to the ER for further evaluation. Pt septic with blood cultures positive for gram positive cocci suggestive of streptococcus species but final micro reports is pending. Our service has been consulted to evaluate pt for GI symptoms. Pt reports he has been having diarrhea for the past six months, states not all the time but that he has more episodes of diarrhea than he does of formed stools. On a bad day he has about 3 episodes. Occasional fecal urgency, denies fecal incontinence. Has not noticed any blood in his stool, however states he does not pay close attention. Denies any abdominal pain or cramping. Also reports heartburn, states occasional, takes Tums at home for relief. Also complaining of nausea and dry heaves but states this began after admission. Last EGD was in 2007 when he was being worked up for possible gastric sleeve, he states exam was normal. Last colonoscopy in 2011 and believe they found one polyp. Reports social ETOH. Denies smoking, illicit drugs and NSAID use. Denies any known GI family history. <Chloe Moeller - Last Filed: 12/23/17 15:49> Review of Systems Constitutional: Reports chills, Reports fever(s) Respiratory: Reports shortness of breath Gastrointestinal: Reports loose stools, Reports nausea, Reports other (fecal urgency), Denies abdominal pain, Denies black, tarry stools, Denies bright, red blood in stools, Denies incontinent of stools, Denies vomiting Neurologic: Reports dizziness <Chloe Moeller - Last Filed: 12/23/17 15:49> PMF - History History Provided By: Patient - Medical History Medical History: Medical History (Last Reviewed 12/23/17 @ 07:50 by Alexandra Ladd) Atrial fibrillation Chronic kidney disease Gout Heart failure Mitral valve insufficiency Morbid obesity Rhinitis Type 2 diabetes mellitus - Tobacco History Second Hand Smoke Exposure: No Tobacco Use In Past 30 Days: No Smoking Status: Never smoker Tobacco Type: Cigarettes - Alcohol History How Often Do You Have a Drink Containing Alcohol: Monthly or less - Substance Use History Substance History: No History of Abuse - Substance Use Type Marijuana Status: Active - Travel History Recent Travel in the [place] Within the Last 8 Weeks: No Recent Travel Out of the Country Within the Last 8 Weeks: No - Immunization History Tetanus Immunization: Unsure Hx Influenza Vaccine This Season: Yes <Chloe Moeller - Last Filed: 12/23/17 15:49> - Medical History Medical History: Medical History (Last Reviewed 12/23/17 @ 07:50 by Alexandra Ladd) Atrial fibrillation Chronic kidney disease Gout Heart failure Mitral valve insufficiency Morbid obesity Rhinitis Type 2 diabetes mellitus <Quintin Licea - Last Filed: 12/23/17 18:48> Medications and Allergies Active Medications: Active Medications Acetaminophen (Tylenol) 650 mg PO Q4H PRN PRN Reason: Temp > 100.4 Apixaban (Eliquis) 2.5 mg PO BID [facility] Atenolol (Tenormin) 50 mg PO DAILY [facility] Last Admin: 12/23/17 08:22 Dose: 50 mg Colchicine (Colcrys) 0.6 mg PO DAILY [facility] Last Admin: 12/23/17 10:20 Dose: 0.6 mg Dextrose (D50w Vial) 50 ml IV.PUSH UNSCH PRN PRN Reason: PER HYPOGLYCEMIA PROTOCOL Glucagon (Glucagon Inj) 1 mg OTHER PRN PRN PRN Reason: for Hypoglycemia Protocol HCTZ/Spironolactone (Aldactazide 25/25 Mg) 1 tab PO DAILY [facility] Last Admin: 12/23/17 10:20 Dose: 1 tab Piperacillin/Tazobactam/Dextrose (Zosyn 3.375 Gm Premix) 50 mls @ 100 mls/hr IV.SIG Q6H [facility] Last Admin: 12/23/17 12:21 Dose: 100 mls/hr Pharmacy Profile Note (Vancomycin Consult Pharmacy) 0 mls @ 0 mls/hr OTHER UNSCH [facility] Vancomycin HCl 2,000 mg/ (Sodium Chloride) 520 mls @ 250 mls/hr IV.SIG Q24H [facility] Last Admin: 12/23/17 08:18 Dose: 250 mls/hr Sodium Chloride (Ns Inj) 1,000 mls @ 100 mls/hr IV.CONT .Q10H [facility] Last Admin: 12/23/17 00:40 Dose: 100 mls/hr Insulin Aspart (Novolog Insulin Correctional Sugar Inj) 0 unit SQ ACHS [facility]; Protocol Last Admin: 12/23/17 13:45 Dose: 12 unit Insulin Detemir (Levemir Inj) 20 unit SQ HS [facility]; Protocol Loratadine (Claritin) 10 mg PO DAILY [facility] Last Admin: 12/23/17 08:23 Dose: 10 mg Metoclopramide HCl (Reglan Inj) 5 mg IV.PUSH Q8HR [facility]; Protocol Last Admin: 12/23/17 13:46 Dose: 5 mg Ondansetron HCl (Zofran Odt) 4 mg PO Q6H PRN PRN Reason: NAUSEA OR VOMITING Last Admin: 12/23/17 03:34 Dose: 4 mg Tamsulosin HCl (Flomax) 0.4 mg PO DAILY [facility] Last Admin: 12/23/17 13:45 Dose: 0.4 mg <Clhoe Moeller - Last Filed: 12/23/17 15:49> Active Medications: Active Medications Acetaminophen (Tylenol) 650 mg PO Q4H PRN PRN Reason: Temp > 100.4 Apixaban (Eliquis) 2.5 mg PO BID [facility] Atenolol (Tenormin) 50 mg PO DAILY [facility] Last Admin: 12/23/17 08:22 Dose: 50 mg Colchicine (Colcrys) 0.6 mg PO DAILY [facility] Last Admin: 12/23/17 10:20 Dose: 0.6 mg Dextrose (D50w Vial) 50 ml IV.PUSH UNSCH PRN PRN Reason: PER HYPOGLYCEMIA PROTOCOL Glucagon (Glucagon Inj) 1 mg OTHER PRN PRN PRN Reason: for Hypoglycemia Protocol HCTZ/Spironolactone (Aldactazide 25/25 Mg) 1 tab PO DAILY [facility] Last Admin: 12/23/17 10:20 Dose: 1 tab Piperacillin/Tazobactam/Dextrose (Zosyn 3.375 Gm Premix) 50 mls @ 100 mls/hr IV.SIG Q6H [facility] Last Admin: 12/23/17 18:09 Dose: 100 mls/hr Pharmacy Profile Note (Vancomycin Consult Pharmacy) 0 mls @ 0 mls/hr OTHER UNSCH [facility] Vancomycin HCl 2,000 mg/ (Sodium Chloride) 520 mls @ 250 mls/hr IV.SIG Q24H [facility] Last Admin: 12/23/17 08:18 Dose: 250 mls/hr Sodium Chloride (Ns Inj) 1,000 mls @ 100 mls/hr IV.CONT .Q10H [facility] Last Admin: 12/23/17 15:57 Dose: 100 mls/hr Insulin Aspart (Novolog Insulin Correctional Sugar Inj) 0 unit SQ ACHS [facility]; Protocol Last Admin: 12/23/17 18:08 Dose: 7 unit Insulin Detemir (Levemir Inj) 20 unit SQ HS [facility]; Protocol Loratadine (Claritin) 10 mg PO DAILY [facility] Last Admin: 12/23/17 08:23 Dose: 10 mg Metoclopramide HCl (Reglan Inj) 5 mg IV.PUSH Q8HR [facility]; Protocol Last Admin: 12/23/17 13:46 Dose: 5 mg Ondansetron HCl (Zofran Odt) 4 mg PO Q6H PRN PRN Reason: NAUSEA OR VOMITING Last Admin: 12/23/17 03:34 Dose: 4 mg Tamsulosin HCl (Flomax) 0.4 mg PO DAILY [facility] Last Admin: 12/23/17 13:45 Dose: 0.4 mg <Quintin Licea - Last Filed: 12/23/17 18:48> Allergies Allergy/AdvReac Type Severity Reaction Status Date / Time No Known Allergies Allergy Unverified 12/22/17 17:16 Home Medications Medication Instructions Recorded Confirmed Type apixaban [Eliquis] 5 mg PO BID 12/22/17 12/22/17 History atenolol [Tenormin] 50 mg PO DAILY 12/22/17 12/22/17 History colchicine [Colcrys] 0.6 mg PO DAILY 12/22/17 12/22/17 History loratadine [Claritin] 10 mg PO DAILY 12/22/17 12/22/17 History metformin 500 mg PO BID 12/22/17 12/22/17 History spironolacton-hydrochlorothiaz 1 tab PO DAILY 12/22/17 12/22/17 History Exam Vital signs: Vital Signs 12/22/17 16:43 12/22/17 17:00 12/22/17 17:16 Temperature 98.3 F 98 F Pulse Rate 122 H 127 H Respiratory Rate 24 20 Blood Pressure 138/60 116/62 Pulse Oximetry 96 92 L 92 L 12/22/17 18:00 12/22/17 20:00 12/22/17 20:52 Temperature 98.7 F Pulse Rate 89 126 H Respiratory Rate 19 20 Blood Pressure 133/60 132/68 Pulse Oximetry 95 95 12/22/17 21:00 12/22/17 22:20 12/23/17 00:00 Temperature 97.5 F L 97.6 F Pulse Rate 120 H 102 H 105 H Respiratory Rate 20 20 20 Blood Pressure 119/57 L 115/64 112/55 L Pulse Oximetry 96 94 L 94 L 12/23/17 04:00 12/23/17 08:00 Temperature 98.6 F 97.6 F Pulse Rate 92 H 94 H Respiratory Rate 20 20 Blood Pressure 107/51 L 110/62 Pulse Oximetry 95 95 Intake & Output 12/22/17 12/23/17 12/23/17 18:59 06:59 18:59 Intake Total 580 / 580 Output Total 250 / 250 Balance 330 / 330 Weight 154.221 kg 157.6 kg Intake: IV 100 / 100 Zosyn 3.375 GM Premix 50 ML @ 100 / 100 100 mls/hr IV.SIG Q6H [facility] Rx#: [id number] Oral 480 / 480 Output: Urine 250 / 250 Other: Date of Last Bowel Movement 12/22/17 # Bowel Movements 0 - Constitutional no acute distress, diaphoretic - Routine HEENT Exam Head: Present: normocephalic, atraumatic - Routine Respiratory Exam Present: decreased breath sounds - Routine Cardiovascular Exam Present: irregularly irregular - Routine Abdominal Exam Present: soft, normoactive bowel sounds. Absent: tenderness Comments: Obese - Routine Skin Exam Present: dry, warm - Routine Neurological Exam Present: alert, oriented X3 <Chloe Moeller - Last Filed: 12/23/17 15:49> Vital signs: Vital Signs 12/22/17 20:00 12/22/17 20:52 12/22/17 21:00 Temperature 98.7 F Pulse Rate 126 H 120 H Respiratory Rate 20 20 Blood Pressure 132/68 119/57 L Pulse Oximetry 95 96 12/22/17 22:20 12/23/17 00:00 12/23/17 04:00 Temperature 97.5 F L 97.6 F 98.6 F Pulse Rate 102 H 105 H 92 H Respiratory Rate 20 20 20 Blood Pressure 115/64 112/55 L 107/51 L Pulse Oximetry 94 L 94 L 95 12/23/17 08:00 12/23/17 09:00 12/23/17 12:00 Temperature 97.6 F 98.2 F Pulse Rate 94 H 94 H 88 Respiratory Rate 20 20 Blood Pressure 110/62 110/58 L Pulse Oximetry 95 95 12/23/17 16:00 Temperature 98.1 F Pulse Rate 93 H Respiratory Rate 20 Blood Pressure 110/61 Pulse Oximetry 95 Intake & Output 12/22/17 12/23/17 12/23/17 18:59 06:59 18:59 Intake Total 580 / 580 1290 / 1290 Output Total 250 / 250 125 / 125 Balance 330 / 330 1165 / 1165 Weight 154.221 kg 157.6 kg Intake: IV 100 / 100 1050 / 1050 NS Inj 1,000 ML @ 100 mls/hr IV 1000 / 1000 .CONT .Q10H [facility] Rx#:[id number] Zosyn 3.375 GM Premix 50 ML @ 100 / 100 50 / 50 100 mls/hr IV.SIG Q6H [facility] Rx#: [id number] Oral 480 / 480 240 / 240 Output: Urine 250 / 250 125 / 125 Other: Date of Last Bowel Movement 12/22/17 # Bowel Movements 0 <Quintin Licea - Last Filed: 12/23/17 18:48> Results - Labs CBC & Chem 7: 12/23/17 08:55 12/23/17 08:55 Labs: Laboratory Results - last 24 hr 12/22/17 12/22/17 12/22/17 17:03 17:04 17:04 WBC 19.7 H RBC 4.69 Hgb 14.4 Hct 42.5 MCV 90.5 MCH 30.8 MCHC 34.0 RDW 14.3 Plt Count 188 MPV 8.8 Prelim Diff (Auto) Manual diff required Neut % (Auto) Lymph % (Auto) [place] % (Auto) Eos % (Auto) Baso % (Auto) Neut # (Auto) Lymph # (Auto) [place] # (Auto) Eos # (Auto) Baso # (Auto) WBC Differential Manual diff final Seg Neuts % (Manual) 60 Band Neuts % (Manual) 35 H Lymphocytes % (Manual) 1 L Monocytes % (Manual) 4 Abs Neuts (Manual) 18.7 H Differential Comment . Toxic Granulation 1+ H Platelet Estimate Normal Platelet Morphology Enlarged H PT 11.1 INR 1.1 APTT 29.8 Sodium Potassium Chloride Carbon Dioxide Anion Gap BUN Creatinine Estimated GFR POC Glucose 429 H Random Glucose Lactic Acid Calcium Magnesium Total Bilirubin AST ALT Alkaline Phosphatase Total Creatine Kinase Troponin I B-Natriuretic Peptide Total Protein Albumin Lipase Urine Color Urine Clarity Urine pH Ur Specific [place] Urine Protein Urine Glucose (UA) Urine Ketones Urine Occult Blood Urine Nitrate Urine Bilirubin Urine Urobilinogen Ur Leukocyte Esterase Urine RBC Urine WBC Ur Squamous Epith Cells Amorphous Sediment Urine Bacteria Granular Casts Urine Mucus Micro UA Comment Urine Culture Comments Stl C.difficile Tox PCR St C. diff Tox Epid 027 12/22/17 12/22/17 12/22/17 17:04 17:30 19:45 WBC RBC Hgb Hct MCV MCH MCHC RDW Plt Count MPV Prelim Diff (Auto) Neut % (Auto) Lymph % (Auto) [place] % (Auto) Eos % (Auto) Baso % (Auto) Neut # (Auto) Lymph # (Auto) [place] # (Auto) Eos # (Auto) Baso # (Auto) WBC Differential Seg Neuts % (Manual) Band Neuts % (Manual) Lymphocytes % (Manual) Monocytes % (Manual) Abs Neuts (Manual) Differential Comment Toxic Granulation Platelet Estimate Platelet Morphology PT INR APTT Sodium 129 L Potassium 4.6 Chloride 93 L Carbon Dioxide 22.2 Anion Gap 14 BUN 38 H Creatinine 2.46 H Estimated GFR 27 L POC Glucose Random Glucose 401 H Lactic Acid 4.7 H* 4.5 H* Calcium 9.0 Magnesium 1.2 L Total Bilirubin 0.8 AST 27 ALT 35 Alkaline Phosphatase 104 Total Creatine Kinase 48 Troponin I Less than 0.02 L B-Natriuretic Peptide Total Protein 7.9 Albumin 3.6 Lipase 149 Urine Color Urine Clarity Urine pH Ur Specific [place] Urine Protein Urine Glucose (UA) Urine Ketones Urine Occult Blood Urine Nitrate Urine Bilirubin Urine Urobilinogen Ur Leukocyte Esterase Urine RBC Urine WBC Ur Squamous Epith Cells Amorphous Sediment Urine Bacteria Granular Casts Urine Mucus Micro UA Comment Urine Culture Comments Stl C.difficile Tox PCR St C. diff Tox Epid 027 12/22/17 12/23/17 12/23/17 20:10 01:30 08:17 WBC RBC Hgb Hct MCV MCH MCHC RDW Plt Count MPV Prelim Diff (Auto) Neut % (Auto) Lymph % (Auto) [place] % (Auto) Eos % (Auto) Baso % (Auto) Neut # (Auto) Lymph # (Auto) [place] # (Auto) Eos # (Auto) Baso # (Auto) WBC Differential Seg Neuts % (Manual) Band Neuts % (Manual) Lymphocytes % (Manual) Monocytes % (Manual) Abs Neuts (Manual) Differential Comment Toxic Granulation Platelet Estimate Platelet Morphology PT INR APTT Sodium Potassium Chloride Carbon Dioxide Anion Gap BUN Creatinine Estimated GFR POC Glucose 481 H* Random Glucose Lactic Acid Calcium Magnesium Total Bilirubin AST ALT Alkaline Phosphatase Total Creatine Kinase Troponin I B-Natriuretic Peptide Total Protein Albumin Lipase Urine Color [place] Urine Clarity Cloudy H Urine pH 5.0 Ur Specific [place] 1.018 Urine Protein 30 H Urine Glucose (UA) 500 or greater Urine Ketones Trace Urine Occult Blood Small H Urine Nitrate Negative Urine Bilirubin Negative Urine Urobilinogen Less than 2 Ur Leukocyte Esterase Negative Urine RBC 5 H Urine WBC 5 Ur Squamous Epith Cells <1 Amorphous Sediment Few H Urine Bacteria Rare H Granular Casts 3 Urine Mucus Few H Micro UA Comment Culture not ind Urine Culture Comments Culture not ind Stl C.difficile Tox PCR Negative St C. diff Tox Epid 027 Negative 12/23/17 12/23/17 12/23/17 08:55 08:55 08:55 WBC 17.4 H RBC 4.09 L Hgb 12.3 L D Hct 36.9 L MCV 90.2 MCH 30.1 MCHC 33.3 RDW 14.8 Plt Count 152 MPV 8.7 Prelim Diff (Auto) Neut % (Auto) 90.1 H Lymph % (Auto) 3.8 L [place] % (Auto) 5.9 Eos % (Auto) 0.0 Baso % (Auto) 0.2 Neut # (Auto) 15.7 H Lymph # (Auto) 0.7 L [place] # (Auto) 1.0 H Eos # (Auto) 0.0 Baso # (Auto) 0.0 WBC Differential . Seg Neuts % (Manual) Band Neuts % (Manual) Lymphocytes % (Manual) Monocytes % (Manual) Abs Neuts (Manual) Differential Comment Auto diff final Toxic Granulation Platelet Estimate Platelet Morphology PT INR APTT Sodium 127 L Potassium 4.5 Chloride 95 L Carbon Dioxide 19.6 L Anion Gap 12 BUN 44 H Creatinine 2.72 H Estimated GFR 24 L POC Glucose Random Glucose 435 H Lactic Acid Calcium 8.1 L D Magnesium Total Bilirubin AST ALT Alkaline Phosphatase Total Creatine Kinase Troponin I B-Natriuretic Peptide 152 H Total Protein Albumin Lipase Urine Color Urine Clarity Urine pH Ur Specific [place] Urine Protein Urine Glucose (UA) Urine Ketones Urine Occult Blood Urine Nitrate Urine Bilirubin Urine Urobilinogen Ur Leukocyte Esterase Urine RBC Urine WBC Ur Squamous Epith Cells Amorphous Sediment Urine Bacteria Granular Casts Urine Mucus Micro UA Comment Urine Culture Comments Stl C.difficile Tox PCR St C. diff Tox Epid 027 12/23/17 12:20 WBC RBC Hgb Hct MCV MCH MCHC RDW Plt Count MPV Prelim Diff (Auto) Neut % (Auto) Lymph % (Auto) [place] % (Auto) Eos % (Auto) Baso % (Auto) Neut # (Auto) Lymph # (Auto) [place] # (Auto) Eos # (Auto) Baso # (Auto) WBC Differential Seg Neuts % (Manual) Band Neuts % (Manual) Lymphocytes % (Manual) Monocytes % (Manual) Abs Neuts (Manual) Differential Comment Toxic Granulation Platelet Estimate Platelet Morphology PT INR APTT Sodium Potassium Chloride Carbon Dioxide Anion Gap BUN Creatinine Estimated GFR POC Glucose 384 H Random Glucose Lactic Acid Calcium Magnesium Total Bilirubin AST ALT Alkaline Phosphatase Total Creatine Kinase Troponin I B-Natriuretic Peptide Total Protein Albumin Lipase Urine Color Urine Clarity Urine pH Ur Specific [place] Urine Protein Urine Glucose (UA) Urine Ketones Urine Occult Blood Urine Nitrate Urine Bilirubin Urine Urobilinogen Ur Leukocyte Esterase Urine RBC Urine WBC Ur Squamous Epith Cells Amorphous Sediment Urine Bacteria Granular Casts Urine Mucus Micro UA Comment Urine Culture Comments Stl C.difficile Tox PCR St C. diff Tox Epid 027 - Imaging Impressions Abdomen/Pelvis CT 12/22/17 17:16 CONCLUSION: Chest X-Ray 12/22/17 17:16 CONCLUSION: <Chloe Moeller - Last Filed: 12/23/17 15:49> - Labs CBC & Chem 7: 12/23/17 08:55 12/23/17 08:55 Labs: Laboratory Results - last 24 hr 12/22/17 12/22/17 12/23/17 19:45 20:10 01:30 WBC RBC Hgb Hct MCV MCH MCHC RDW Plt Count MPV Neut % (Auto) Lymph % (Auto) [place] % (Auto) Eos % (Auto) Baso % (Auto) Neut # (Auto) Lymph # (Auto) [place] # (Auto) Eos # (Auto) Baso # (Auto) WBC Differential Differential Comment Sodium Potassium Chloride Carbon Dioxide Anion Gap BUN Creatinine Estimated GFR POC Glucose Random Glucose Lactic Acid 4.5 H* Calcium B-Natriuretic Peptide Urine Color [place] Urine Clarity Cloudy H Urine pH 5.0 Ur Specific [place] 1.018 Urine Protein 30 H Urine Glucose (UA) 500 or greater Urine Ketones Trace Urine Occult Blood Small H Urine Nitrate Negative Urine Bilirubin Negative Urine Urobilinogen Less than 2 Ur Leukocyte Esterase Negative Urine RBC 5 H Urine WBC 5 Ur Squamous Epith Cells <1 Amorphous Sediment Few H Urine Bacteria Rare H Granular Casts 3 Urine Mucus Few H Micro UA Comment Culture not ind Urine Culture Comments Culture not ind Stl C.difficile Tox PCR Negative St C. diff Tox Epid 027 Negative 12/23/17 12/23/17 12/23/17 08:17 08:55 08:55 WBC 17.4 H RBC 4.09 L Hgb 12.3 L D Hct 36.9 L MCV 90.2 MCH 30.1 MCHC 33.3 RDW 14.8 Plt Count 152 MPV 8.7 Neut % (Auto) 90.1 H Lymph % (Auto) 3.8 L [place] % (Auto) 5.9 Eos % (Auto) 0.0 Baso % (Auto) 0.2 Neut # (Auto) 15.7 H Lymph # (Auto) 0.7 L [place] # (Auto) 1.0 H Eos # (Auto) 0.0 Baso # (Auto) 0.0 WBC Differential . Differential Comment Auto diff final Sodium 127 L Potassium 4.5 Chloride 95 L Carbon Dioxide 19.6 L Anion Gap 12 BUN 44 H Creatinine 2.72 H Estimated GFR 24 L POC Glucose 481 H* Random Glucose 435 H Lactic Acid Calcium 8.1 L D B-Natriuretic Peptide Urine Color Urine Clarity Urine pH Ur Specific [place] Urine Protein Urine Glucose (UA) Urine Ketones Urine Occult Blood Urine Nitrate Urine Bilirubin Urine Urobilinogen Ur Leukocyte Esterase Urine RBC Urine WBC Ur Squamous Epith Cells Amorphous Sediment Urine Bacteria Granular Casts Urine Mucus Micro UA Comment Urine Culture Comments Stl C.difficile Tox PCR St C. diff Tox Epid 027 12/23/17 12/23/17 12/23/17 08:55 12:20 17:37 WBC RBC Hgb Hct MCV MCH MCHC RDW Plt Count MPV Neut % (Auto) Lymph % (Auto) [place] % (Auto) Eos % (Auto) Baso % (Auto) Neut # (Auto) Lymph # (Auto) [place] # (Auto) Eos # (Auto) Baso # (Auto) WBC Differential Differential Comment Sodium Potassium Chloride Carbon Dioxide Anion Gap BUN Creatinine Estimated GFR POC Glucose 384 H 289 H Random Glucose Lactic Acid Calcium B-Natriuretic Peptide 152 H Urine Color Urine Clarity Urine pH Ur Specific [place] Urine Protein Urine Glucose (UA) Urine Ketones Urine Occult Blood Urine Nitrate Urine Bilirubin Urine Urobilinogen Ur Leukocyte Esterase Urine RBC Urine WBC Ur Squamous Epith Cells Amorphous Sediment Urine Bacteria Granular Casts Urine Mucus Micro UA Comment Urine Culture Comments Stl C.difficile Tox PCR St C. diff Tox Epid 027 - Imaging Impressions Abdomen/Pelvis CT 12/22/17 17:16 CONCLUSION: <Quintin Licea - Last Filed: 12/23/17 18:48> Assessment and Plan - Plan Assessment: - Diarrhea x 6 months, states intermittent but has more diarrhea stools than formed stools. (+) fecal urgency but denies fecal incontinence. Denies hematochezia and melena but states not pay that close attention. On a bad day reports around 3 stools a day. Denies abdominal pain and cramping. Also complaining of nausea and dry heaves, he states began since admission, denies hematemesis and coffee ground emesis Last colonoscopy in 2011, reports one polyp Last EGD in 2007, states normal exam CT abdomen and pelvis WO IV contrast --> Hepatic steatosis. Bilateral renal masses, may represent cysts, scattered colonic diverticula, prominent fat within the inguinal canals which could suggest hernias. No bowel is seen in these regions. C. Diff negative - Sepsis, blood cultures positive for gram positive cocci suggestive of streptococcus, final micro report is pending - A-fib- on Eliquis- last dosage was this morning - Elevated BGL- Known DM, takes Metformin for years, states blood sugars are in 200s at home, since hospitalization has been over 400, likely secondary to infection- this may be part of the etiology for nausea - SOB- chest x-ray showing mild to moderate cardiomegaly- echo pending - ANA on CKD Plan: Stool enteric pathogens ID consult pending EGD and colonoscopy possibly Wednesday Will hold Eliquis, needs longer due to poor kidney function Continue with current supportive care Further recommendations to follow Pt has been seen and examined by myself and Dr. Licea and this note is written on his behalf <Chloe Moeller - Last Filed: 12/23/17 15:49> - Plan Agree with above note, patient still taking Eliquis with kidney failure, he will need colonscopy EGD possibly Wednesday <Quintin Licea - Last Filed: 12/23/17 18:48>
--- NOTE | 2017-12-23 15:46 | P.CONID ---
History of Present Illness Service: ID Consult date: 12/23/17 Requesting Physician: Merlyn Driscoll Reason for Consult: sepsis Primary Care Provider: Patsy Ernst MD History of Present Illness: 67 yo male with ongoing abdominal pain, dioarrhea and nausea/vomiting for months presented dizzy lighheaded, with chills and fevers WBC 19K, 35% bandemia and lactic acidosiss in mid 4s Creatinine in 2.4-2.7 range Today all 4 /4 bottles ofg blood clx are positive for Strep spp Denies urinary smx Remote (6-7 yrs ago) colonoscopy. CT done with no contrast PO or IV and showed kidney masses Review of Systems All other systems reviewed negative except as stated in HPI PMFSH - History History Provided By: Patient - Medical History Medical History: Medical History (Last Reviewed 02/18/18 @ 09:58 by Michelle Souza MD) Atrial fibrillation Chronic kidney disease Gout Heart failure Mitral valve insufficiency Morbid obesity Rhinitis Type 2 diabetes mellitus - Family History Family History: Family History (Last Updated 02/18/18 @ 09:58 by Michelle Souza MD) Other No pertinent family history - Social History I have reviewed the patient's Social History: Yes - Tobacco History Second Hand Smoke Exposure: No Tobacco Use In Past 30 Days: No Smoking Status: Never smoker Tobacco Type: Cigarettes - Alcohol History How Often Do You Have a Drink Containing Alcohol: Monthly or less - Substance Use History Substance History: No History of Abuse - Substance Use Type Marijuana Status: Active - Travel History Recent Travel in the [place] Within the Last 8 Weeks: No Recent Travel Out of the Country Within the Last 8 Weeks: No - Immunization History Tetanus Immunization: Unsure Hx Influenza Vaccine This Season: Yes Medications and Allergies Active Medications: Active Medications Acetaminophen (Tylenol) 650 mg PO Q4H PRN PRN Reason: Temp > 100.4 Apixaban (Eliquis) 2.5 mg PO BID [facility] Atenolol (Tenormin) 50 mg PO DAILY [facility] Last Admin: 12/23/17 08:22 Dose: 50 mg Colchicine (Colcrys) 0.6 mg PO DAILY [facility] Last Admin: 12/23/17 10:20 Dose: 0.6 mg Dextrose (D50w Vial) 50 ml IV.PUSH UNSCH PRN PRN Reason: PER HYPOGLYCEMIA PROTOCOL Glucagon (Glucagon Inj) 1 mg OTHER PRN PRN PRN Reason: for Hypoglycemia Protocol HCTZ/Spironolactone (Aldactazide 25/25 Mg) 1 tab PO DAILY [facility] Last Admin: 12/23/17 10:20 Dose: 1 tab Piperacillin/Tazobactam/Dextrose (Zosyn 3.375 Gm Premix) 50 mls @ 100 mls/hr IV.SIG Q6H [facility] Last Admin: 12/23/17 12:21 Dose: 100 mls/hr Pharmacy Profile Note (Vancomycin Consult Pharmacy) 0 mls @ 0 mls/hr OTHER UNSCH [facility] Vancomycin HCl 2,000 mg/ (Sodium Chloride) 520 mls @ 250 mls/hr IV.SIG Q24H [facility] Last Admin: 12/23/17 08:18 Dose: 250 mls/hr Sodium Chloride (Ns Inj) 1,000 mls @ 100 mls/hr IV.CONT .Q10H [facility] Last Admin: 12/23/17 00:40 Dose: 100 mls/hr Insulin Aspart (Novolog Insulin Correctional Sugar Inj) 0 unit SQ ACHS [facility]; Protocol Last Admin: 12/23/17 13:45 Dose: 12 unit Insulin Detemir (Levemir Inj) 20 unit SQ HS [facility]; Protocol Loratadine (Claritin) 10 mg PO DAILY [facility] Last Admin: 12/23/17 08:23 Dose: 10 mg Metoclopramide HCl (Reglan Inj) 5 mg IV.PUSH Q8HR [facility]; Protocol Last Admin: 12/23/17 13:46 Dose: 5 mg Ondansetron HCl (Zofran Odt) 4 mg PO Q6H PRN PRN Reason: NAUSEA OR VOMITING Last Admin: 12/23/17 03:34 Dose: 4 mg Tamsulosin HCl (Flomax) 0.4 mg PO DAILY [facility] Last Admin: 12/23/17 13:45 Dose: 0.4 mg Allergies Allergy/AdvReac Type Severity Reaction Status Date / Time No Known Allergies Allergy Unverified 12/22/17 17:16 Home Medications Medication Instructions Recorded Confirmed Type apixaban [Eliquis] 5 mg PO BID 12/22/17 12/22/17 History atenolol [Tenormin] 50 mg PO DAILY 12/22/17 12/22/17 History colchicine [Colcrys] 0.6 mg PO DAILY 12/22/17 12/22/17 History loratadine [Claritin] 10 mg PO DAILY 12/22/17 12/22/17 History metformin 500 mg PO BID 12/22/17 12/22/17 History spironolacton-hydrochlorothiaz 1 tab PO DAILY 12/22/17 12/22/17 History Exam Vital signs: Vital Signs 12/22/17 16:43 12/22/17 17:00 12/22/17 17:16 Temperature 98.3 F 98 F Pulse Rate 122 H 127 H Respiratory Rate 24 20 Blood Pressure 138/60 116/62 Pulse Oximetry 96 92 L 92 L 12/22/17 18:00 12/22/17 20:00 12/22/17 20:52 Temperature 98.7 F Pulse Rate 89 126 H Respiratory Rate 19 20 Blood Pressure 133/60 132/68 Pulse Oximetry 95 95 12/22/17 21:00 12/22/17 22:20 12/23/17 00:00 Temperature 97.5 F L 97.6 F Pulse Rate 120 H 102 H 105 H Respiratory Rate 20 20 20 Blood Pressure 119/57 L 115/64 112/55 L Pulse Oximetry 96 94 L 94 L 12/23/17 04:00 12/23/17 08:00 12/23/17 12:00 Temperature 98.6 F 97.6 F 98.2 F Pulse Rate 92 H 94 H 88 Respiratory Rate 20 20 20 Blood Pressure 107/51 L 110/62 110/58 L Pulse Oximetry 95 95 95 Intake & Output 12/22/17 12/23/17 12/23/17 18:59 06:59 18:59 Intake Total 580 / 580 Output Total 250 / 250 Balance 330 / 330 Weight 154.221 kg 157.6 kg Intake: IV 100 / 100 Zosyn 3.375 GM Premix 50 ML @ 100 / 100 100 mls/hr IV.SIG Q6H [facility] Rx#: [id number] Oral 480 / 480 Output: Urine 250 / 250 Other: Date of Last Bowel Movement 12/22/17 # Bowel Movements 0 - Constitutional mild distress, morbidly obese - Routine HEENT Exam Head: Present: normocephalic, atraumatic Eye: Present: EOMI, PERRL, conjunctivae pink ENT: Present: mucous membranes dry, oropharynx clear, dentition normal - Routine Neck Exam Present: supple, full ROM - Routine Respiratory Exam Present: decreased breath sounds, CTA bilaterally - Routine Cardiovascular Exam Present: RRR, S1, S2 Comments: perifery well perfuserd brisk refill - Routine Abdominal Exam Present: soft, tenderness (diffuse), distended Comments: tender markedly distended unable to appreciate organomegaly/masses - Routine Extremities Exam Present: full ROM Comments: no cynosis clubbing edema + chronically apearing hyperpigmentaiton - Routine Skin Exam Present: intact, dry, warm - Routine Neurological Exam Present: alert, oriented X3, CN II-XII intact, moving all extremities, vision grossly intact, hearing grossly intact, normal speech - Routine Psychiatric Exam Present: normal affect, normal thought process, cooperative Results - Labs CBC & Chem 7: 12/28/17 07:40 12/28/17 07:40 Labs: Laboratory Results - last 24 hr 12/22/17 12/22/17 12/22/17 17:03 17:04 17:04 WBC 19.7 H RBC 4.69 Hgb 14.4 Hct 42.5 MCV 90.5 MCH 30.8 MCHC 34.0 RDW 14.3 Plt Count 188 MPV 8.8 Prelim Diff (Auto) Manual diff required Neut % (Auto) Lymph % (Auto) [place] % (Auto) Eos % (Auto) Baso % (Auto) Neut # (Auto) Lymph # (Auto) [place] # (Auto) Eos # (Auto) Baso # (Auto) WBC Differential Manual diff final Seg Neuts % (Manual) 60 Band Neuts % (Manual) 35 H Lymphocytes % (Manual) 1 L Monocytes % (Manual) 4 Abs Neuts (Manual) 18.7 H Differential Comment . Toxic Granulation 1+ H Platelet Estimate Normal Platelet Morphology Enlarged H PT 11.1 INR 1.1 APTT 29.8 Sodium Potassium Chloride Carbon Dioxide Anion Gap BUN Creatinine Estimated GFR POC Glucose 429 H Random Glucose Lactic Acid Calcium Magnesium Total Bilirubin AST ALT Alkaline Phosphatase Total Creatine Kinase Troponin I B-Natriuretic Peptide Total Protein Albumin Lipase Urine Color Urine Clarity Urine pH Ur Specific [place] Urine Protein Urine Glucose (UA) Urine Ketones Urine Occult Blood Urine Nitrate Urine Bilirubin Urine Urobilinogen Ur Leukocyte Esterase Urine RBC Urine WBC Ur Squamous Epith Cells Amorphous Sediment Urine Bacteria Granular Casts Urine Mucus Micro UA Comment Urine Culture Comments Stl C.difficile Tox PCR St C. diff Tox Epid 027 12/22/17 12/22/17 12/22/17 17:04 17:30 19:45 WBC RBC Hgb Hct MCV MCH MCHC RDW Plt Count MPV Prelim Diff (Auto) Neut % (Auto) Lymph % (Auto) [place] % (Auto) Eos % (Auto) Baso % (Auto) Neut # (Auto) Lymph # (Auto) [place] # (Auto) Eos # (Auto) Baso # (Auto) WBC Differential Seg Neuts % (Manual) Band Neuts % (Manual) Lymphocytes % (Manual) Monocytes % (Manual) Abs Neuts (Manual) Differential Comment Toxic Granulation Platelet Estimate Platelet Morphology PT INR APTT Sodium 129 L Potassium 4.6 Chloride 93 L Carbon Dioxide 22.2 Anion Gap 14 BUN 38 H Creatinine 2.46 H Estimated GFR 27 L POC Glucose Random Glucose 401 H Lactic Acid 4.7 H* 4.5 H* Calcium 9.0 Magnesium 1.2 L Total Bilirubin 0.8 AST 27 ALT 35 Alkaline Phosphatase 104 Total Creatine Kinase 48 Troponin I Less than 0.02 L B-Natriuretic Peptide Total Protein 7.9 Albumin 3.6 Lipase 149 Urine Color Urine Clarity Urine pH Ur Specific [place] Urine Protein Urine Glucose (UA) Urine Ketones Urine Occult Blood Urine Nitrate Urine Bilirubin Urine Urobilinogen Ur Leukocyte Esterase Urine RBC Urine WBC Ur Squamous Epith Cells Amorphous Sediment Urine Bacteria Granular Casts Urine Mucus Micro UA Comment Urine Culture Comments Stl C.difficile Tox PCR St C. diff Tox Epid 027 12/22/17 12/23/17 12/23/17 20:10 01:30 08:17 WBC RBC Hgb Hct MCV MCH MCHC RDW Plt Count MPV Prelim Diff (Auto) Neut % (Auto) Lymph % (Auto) [place] % (Auto) Eos % (Auto) Baso % (Auto) Neut # (Auto) Lymph # (Auto) [place] # (Auto) Eos # (Auto) Baso # (Auto) WBC Differential Seg Neuts % (Manual) Band Neuts % (Manual) Lymphocytes % (Manual) Monocytes % (Manual) Abs Neuts (Manual) Differential Comment Toxic Granulation Platelet Estimate Platelet Morphology PT INR APTT Sodium Potassium Chloride Carbon Dioxide Anion Gap BUN Creatinine Estimated GFR POC Glucose 481 H* Random Glucose Lactic Acid Calcium Magnesium Total Bilirubin AST ALT Alkaline Phosphatase Total Creatine Kinase Troponin I B-Natriuretic Peptide Total Protein Albumin Lipase Urine Color [place] Urine Clarity Cloudy H Urine pH 5.0 Ur Specific [place] 1.018 Urine Protein 30 H Urine Glucose (UA) 500 or greater Urine Ketones Trace Urine Occult Blood Small H Urine Nitrate Negative Urine Bilirubin Negative Urine Urobilinogen Less than 2 Ur Leukocyte Esterase Negative Urine RBC 5 H Urine WBC 5 Ur Squamous Epith Cells <1 Amorphous Sediment Few H Urine Bacteria Rare H Granular Casts 3 Urine Mucus Few H Micro UA Comment Culture not ind Urine Culture Comments Culture not ind Stl C.difficile Tox PCR Negative St C. diff Tox Epid 027 Negative 12/23/17 12/23/17 12/23/17 08:55 08:55 08:55 WBC 17.4 H RBC 4.09 L Hgb 12.3 L D Hct 36.9 L MCV 90.2 MCH 30.1 MCHC 33.3 RDW 14.8 Plt Count 152 MPV 8.7 Prelim Diff (Auto) Neut % (Auto) 90.1 H Lymph % (Auto) 3.8 L [place] % (Auto) 5.9 Eos % (Auto) 0.0 Baso % (Auto) 0.2 Neut # (Auto) 15.7 H Lymph # (Auto) 0.7 L [place] # (Auto) 1.0 H Eos # (Auto) 0.0 Baso # (Auto) 0.0 WBC Differential . Seg Neuts % (Manual) Band Neuts % (Manual) Lymphocytes % (Manual) Monocytes % (Manual) Abs Neuts (Manual) Differential Comment Auto diff final Toxic Granulation Platelet Estimate Platelet Morphology PT INR APTT Sodium 127 L Potassium 4.5 Chloride 95 L Carbon Dioxide 19.6 L Anion Gap 12 BUN 44 H Creatinine 2.72 H Estimated GFR 24 L POC Glucose Random Glucose 435 H Lactic Acid Calcium 8.1 L D Magnesium Total Bilirubin AST ALT Alkaline Phosphatase Total Creatine Kinase Troponin I B-Natriuretic Peptide 152 H Total Protein Albumin Lipase Urine Color Urine Clarity Urine pH Ur Specific [place] Urine Protein Urine Glucose (UA) Urine Ketones Urine Occult Blood Urine Nitrate Urine Bilirubin Urine Urobilinogen Ur Leukocyte Esterase Urine RBC Urine WBC Ur Squamous Epith Cells Amorphous Sediment Urine Bacteria Granular Casts Urine Mucus Micro UA Comment Urine Culture Comments Stl C.difficile Tox PCR St C. diff Tox Epid 027 12/23/17 12:20 WBC RBC Hgb Hct MCV MCH MCHC RDW Plt Count MPV Prelim Diff (Auto) Neut % (Auto) Lymph % (Auto) [place] % (Auto) Eos % (Auto) Baso % (Auto) Neut # (Auto) Lymph # (Auto) [place] # (Auto) Eos # (Auto) Baso # (Auto) WBC Differential Seg Neuts % (Manual) Band Neuts % (Manual) Lymphocytes % (Manual) Monocytes % (Manual) Abs Neuts (Manual) Differential Comment Toxic Granulation Platelet Estimate Platelet Morphology PT INR APTT Sodium Potassium Chloride Carbon Dioxide Anion Gap BUN Creatinine Estimated GFR POC Glucose 384 H Random Glucose Lactic Acid Calcium Magnesium Total Bilirubin AST ALT Alkaline Phosphatase Total Creatine Kinase Troponin I B-Natriuretic Peptide Total Protein Albumin Lipase Urine Color Urine Clarity Urine pH Ur Specific [place] Urine Protein Urine Glucose (UA) Urine Ketones Urine Occult Blood Urine Nitrate Urine Bilirubin Urine Urobilinogen Ur Leukocyte Esterase Urine RBC Urine WBC Ur Squamous Epith Cells Amorphous Sediment Urine Bacteria Granular Casts Urine Mucus Micro UA Comment Urine Culture Comments Stl C.difficile Tox PCR St C. diff Tox Epid 027 - Imaging CXR NAD Impressions Abd CT 1. No acute abnormality seen. 2. Hepatic steatosis. 3. Bilateral renal masses. These are nonspecific on this noncontrast CT examination. They may represent cysts. They could be further evaluated some point within ultrasound examination or contrast-enhanced study. This could be performed as an outpatient. 4. Scattered colonic diverticula. 5. Prominent fat within the inguinal canals which could suggest hernias. No bowel is seen in these regions. Abdomen/Pelvis CT 12/22/17 17:16 CONCLUSION: Chest X-Ray 12/22/17 17:16 CONCLUSION: Assessment and Plan - Plan Sepsis, streptococcal source is GI: pt had months of h/o diarrhea, abd pain an dvomiting CT is unrevealing - cont current abx further abxx adjustementn s per clx reports 2 D echo repeat BC coloscopy - GI is consulted stool studies consider repeating CT with contrast if non revealing colonoscopy and GFR> 30
--- NOTE | 2017-12-23 17:43 | ECHRPT ---
Indication: CHF CONCLUSIONS technically limited study, grossly normal lv size and wall thickness, ef@ 40-45% The left atrial size is moderately dilated. The right atrial size is [id number] dilated. mild mitral valve regurgitation. There is mild tricuspid valve regurgitation. The estimated pulmonary arterial pressure is 38.9 mmHg. The left atrial size is moderately dilated. The right atrial size is [id number] dilated. The aortic root and proximal ascending aorta are not well visualized. No mitral valve stenosis, mild mitral valve regurgitation. There is mild tricuspid valve regurgitation. The estimated pulmonary arterial pressure is 38.9 mmHg. There is no pericardial effusion. The transthoracic study is normal by two-dimensional, color flow imaging and Doppler interrogation. BP: / HR: Rhythm: MEASUREMENTS (Male / Female) Normal Values Technical Quality: M-MODE LV Diastolic Diameter MM 6.7 cm 4.2 - 5.9 / 3.9 - 5.3 cm LV Systolic Diameter MM 5.1 cm LV Ejection Fraction MM Teich 45.4 % IVS Diastolic Thickness MM 1.4 cm 0.6 - 1.0 / 0.6 - 0.9 cm LVPW Diastolic Thickness MM 1.4 cm 0.6 - 1.0 / 0.6 - 0.9 cm LV Relative Wall Thickness MM 0.4 0.24 - 0.42 / 0.22 - 0.42 DOPPLER Mitral E Point Velocity 149.0 cm/s Mitral A Point Velocity 45.1 cm/s Mitral E to A Ratio 3.3 TR Peak Velocity 269.0 cm/s TR Peak Gradient 28.9 mmHg Right Atrial Pressure 10.0 mmHg Pulmonary Artery Systolic Pressu 38.9 mmHg Right Ventricular Systolic Press 38.9 mmHg FINDINGS LEFT VENTRICLE The left ventricular systolic function is normal with an estimated ejection fraction in the range of 60-65%. RIGHT VENTRICLE Normal right ventricular size and systolic function. LEFT ATRIUM The left atrial size is moderately dilated. RIGHT ATRIUM The right atrial size is [id number] dilated. ATRIAL SEPTUM Normal atrial septal thickness without atrial level shunting by limited color doppler interrogation. AORTA The aortic root and proximal ascending aorta are not well visualized. MITRAL VALVE Structurally normal mitral valve. No mitral valve stenosis, mild mitral valve regurgitation. AORTIC VALVE Trileaflet aortic valve. No aortic valve stenosis or regurgitation. TRICUSPID VALVE There is mild tricuspid valve regurgitation. The estimated pulmonary arterial pressure is 38.9 mmHg. PULMONARY VALVE No pulmonary valve regurgitation or stenosis. VESSELS The inferior vena cava is normal in size. PERICARDIUM There is no pericardial effusion. Dustin Souza MD, FACC, FSCAI (Electronically Signed) Final Date:23 December 2017 17:42
[2017-12-23] MEDS ORDERED: Insulin Detemir Inj 1,000 UNIT/10 ML Vial SQ SCH (21:00)
[2017-12-24] MEDS: Piperacil/Tazo 3.375 GM Premix 50 ML IV.SIG SCH ×3 (00:10→14:33)
[2017-12-24] MEDS: Sod Chloride 0.9% Inj 1,000 ML IV.CONT SCH ×2 (04:23→21:04)
[2017-12-24 07:39] LABS: Baso % (Auto) 0.2 % (0.0-2.0); Eos % (Auto) 0.1 % (0.0-4.0); Hemoglobin 12.8 gm/dL (13.0-17.0); Lymph # (Auto) 1.5 th/mm3 (1.0-4.8); Lymph % (Auto) 10.8 % (9.0-44.0); Mean Corpuscular HGB Conc 33.8 % (32.0-36.0); Mean Corpuscular Hemoglobin 30.2 pg (27.0-34.0); Mean Corpuscular Volume 89.4 fL (80.0-100.0); Mean Platelet Volume 8.7 fL (7.0-11.0); Mono # (Auto) 0.9 th/mm3 (0.0-0.9); Mono % (Auto) 6.6 % (0.0-8.0); Neut # (Auto) 11.7 th/mm3 (1.8-7.7); Neut % (Auto) 82.3 % (16.0-70.0); Platelet Count 149 th/mm3 (150-450); Red Blood Count 4.25 mil/mm3 (4.50-5.90); Red Cell Distribution Width 14.8 % (11.6-17.2); White Blood Count 14.2 th/mm3 (4.0-11.0)
[2017-12-24 08:14] LABS: Calcium 8.1 mg/dL (8.5-10.1); Carbon Dioxide 23.4 meq/L (21.0-32.0); Potassium 3.9 meq/L (3.5-5.1); Vancomycin,Random 15.4 Comment
[2017-12-24] MEDS: Loratadine 10 MG Tablet PO SCH (09:42)
[2017-12-24] MEDS: Atenolol 50 MG Tablet PO SCH (09:44)
[2017-12-24] MEDS: Insulin NovoLOG Aspart Correctional Sugar Inj SQ SCH ×5 (09:45→21:02)
--- NOTE | 2017-12-24 12:27 | P.PNIM ---
Subjective Interval history: Patient still feels fatigue and not himself. Reports still having loose stools diarrhea no abdominal pain however when he coughs there is some generalized abdominal pain. No nausea and able to tolerate diet. No symptoms of dysuria or frequency or urgency. Physical Exam Vital signs: Vital Signs 12/23/17 16:00 12/23/17 20:00 12/24/17 00:00 Temperature 98.1 F 99.1 F 98.9 F Pulse Rate 93 H 99 H 95 H Respiratory Rate 20 18 18 Blood Pressure 110/61 107/59 L 110/62 Pulse Oximetry 95 97 96 12/24/17 04:00 12/24/17 08:00 Temperature 97.8 F 98.0 F Pulse Rate 109 H 93 H Respiratory Rate 18 18 Blood Pressure 100/61 101/57 L Pulse Oximetry 93 L 94 L Intake & Output 12/23/17 12/24/17 12/24/17 18:59 06:59 18:59 Intake Total 1340 / 1340 1290 / 1290 Output Total 125 / 125 650 / 650 Balance 1215 / 1215 640 / 640 Weight 158.7 kg Intake: IV 1100 / 1100 1050 / 1050 NS Inj 1,000 ML @ 100 mls/hr IV 1000 / 1000 1000 / 1000 .CONT .Q10H [facility] Rx#:[id number] Zosyn 3.375 GM Premix 50 ML @ 100 / 100 50 / 50 100 mls/hr IV.SIG Q6H [facility] Rx#: [id number] Oral 240 / 240 240 / 240 Output: Urine 125 / 125 650 / 650 Other: Date of Last Bowel Movement 12/23/17 12/23/17 # Bowel Movements 0 Narrative: GENERAL: This is a well-nourished, obese well-developed patient, in no apparent distress. CARDIOVASCULAR: Regular rate and rhythm RESPIRATORY: Relatively clear to auscultation. Breath sounds equal bilaterally. No wheezes, rales, or rhonchi. GASTROINTESTINAL: Abdomen soft, non-tender, nondistended. Normal active bowel sounds MUSCULOSKELETAL: Extremities without clubbing, cyanosis, trace to 1+ edema Skin: Bilateral venous stasis dermatitis changes in the lower extremity with unchanged redness of the right anterior tibial area NEURO: Alert & Oriented x4 to person, place, time, situation. Moves all ext x4 Results - Labs CBC & Chem 7: 12/24/17 06:17 12/24/17 06:17 Laboratory Results - last 24 hr 12/23/17 12/23/17 12/23/17 12:20 17:37 20:09 WBC RBC Hgb Hct MCV MCH MCHC RDW Plt Count MPV Neut % (Auto) Lymph % (Auto) [place] % (Auto) Eos % (Auto) Baso % (Auto) Neut # (Auto) Lymph # (Auto) [place] # (Auto) Eos # (Auto) Baso # (Auto) WBC Differential Differential Comment Sodium Potassium Chloride Carbon Dioxide Anion Gap BUN Creatinine Estimated GFR POC Glucose 384 H 289 H 357 H Random Glucose Calcium Random Vancomycin 12/24/17 12/24/17 12/24/17 06:17 06:17 09:13 WBC 14.2 H RBC 4.25 L Hgb 12.8 L Hct 38.0 L MCV 89.4 MCH 30.2 MCHC 33.8 RDW 14.8 Plt Count 149 L MPV 8.7 Neut % (Auto) 82.3 H Lymph % (Auto) 10.8 [place] % (Auto) 6.6 Eos % (Auto) 0.1 Baso % (Auto) 0.2 Neut # (Auto) 11.7 H Lymph # (Auto) 1.5 [place] # (Auto) 0.9 Eos # (Auto) 0.0 Baso # (Auto) 0.0 WBC Differential . Differential Comment Auto diff final Sodium 133 L Potassium 3.9 Chloride 99 Carbon Dioxide 23.4 Anion Gap 11 BUN 42 H Creatinine 2.63 H Estimated GFR 25 L POC Glucose 345 H Random Glucose 253 H D Calcium 8.1 L Random Vancomycin 15.4 Microbiology 12/22/17 17:25 Blood - Peripheral Aerobic Blood Culture - Preliminary Beta Strep not A,B or D 12/22/17 17:25 Blood - Peripheral Anaerobic Blood Culture - Preliminary Beta Strep not A,B or D 12/22/17 17:05 Blood - Peripheral Aerobic Blood Culture - Preliminary Beta Strep not A,B or D 12/22/17 17:05 Blood - Peripheral Anaerobic Blood Culture - Preliminary Beta Strep not A,B or D - Imaging Impressions Chest X-Ray 12/22/17 17:16 CONCLUSION: 1. Mild to moderate cardiomegaly. 2. No definite evidence of pneumonia. Assessment and Plan - Plan 1. Septic shock based on lactic acid greater than 4 on admission with leukocytosis Patient with leukocytosis, elevated lactic acid, tachycardia CT of the abdomen/pelvis negative for acute process Chest x-ray significant for cardiomegaly without acute process, C. difficile negative UA pending Continue vancomycin/Zosyn Blood cultures shows beta strep and appreciate infectious disease consultation. Repeat lactic acid shows levels trending down IV fluid hydration Questionable source? Unknown due to cellulitis versus other source. For EGD and colonoscopy on Wednesday for further workup and evaluation. Stool cultures and sensitivities are currently pending. Consideration of possibly repeating CT abdomen pelvis with contrast if symptoms does not improve. 2. Atrial fibrillation for rate control hold hold home Eliquis for pending EGD colonoscopy Continue atenolol 3. Diabetes mellitus type II uncontrolled Holding home metformin due to acute renal failure Sliding-scale insulin Increase long-acting insulin and start preprandial insulin Monitor blood glucose 4. CHF, chronic diastolic Continue spironolactone Echo EF 4045% 5. Acute kidney injury superimposed on chronic kidney disease stage IVstop metformin. Avoid all nephrotoxins. Monitor with IV fluid hydration, component of prerenal likely due to patient's nausea vomiting and underlying sepsis. 6 DVT prophylaxis Eliquis on hold due for pending procedure 7. Diarrhea with intractable nausea vomiting unknown if patient has a component of diabetic gastroparesisCT of the abdomen pelvis negative; appreciate GI consultation.
[2017-12-24] MEDS ORDERED: Vancomycin Inj 2,000 MG in Sodium Chlor 0.9% Inj 500 ML IV.SIG ONE (14:00)
--- NOTE | 2017-12-24 14:50 | P.PNID ---
Subjective Remarks: feels a little better 2 D echo negative but tech difficult 4/4 + blood clx no fever GFR slighlty improved Antibiotics: vanco zosyn Allergies/Adverse Reactions: Allergies No Known Allergies Allergy (Unverified 12/22/17 17:16) Objective Vital Signs 12/23/17 16:00 12/23/17 20:00 12/24/17 00:00 Temperature 98.1 F 99.1 F 98.9 F Pulse Rate 93 H 99 H 95 H Respiratory Rate 20 18 18 Blood Pressure 110/61 107/59 L 110/62 Pulse Oximetry 95 97 96 12/24/17 04:00 12/24/17 08:00 Temperature 97.8 F 98.0 F Pulse Rate 109 H 93 H Respiratory Rate 18 18 Blood Pressure 100/61 101/57 L Pulse Oximetry 93 L 94 L Intake & Output 12/23/17 12/24/17 12/24/17 18:59 06:59 18:59 Intake Total 1340 / 1340 1340 / 1340 Output Total 125 / 125 650 / 650 Balance 1215 / 1215 690 / 690 Weight 158.7 kg Intake: IV 1100 / 1100 1100 / 1100 NS Inj 1,000 ML @ 100 mls/hr IV 1000 / 1000 1000 / 1000 .CONT .Q10H [facility] Rx#:[id number] Zosyn 3.375 GM Premix 50 ML @ 100 / 100 100 / 100 100 mls/hr IV.SIG Q6H [facility] Rx#: [id number] Oral 240 / 240 240 / 240 Output: Urine 125 / 125 650 / 650 Other: Date of Last Bowel Movement 12/23/17 12/23/17 # Bowel Movements 0 12/22/17 17:25 Blood - Peripheral Aerobic Blood Culture - Preliminary Beta Strep not A,B or D 12/22/17 17:25 Blood - Peripheral Anaerobic Blood Culture - Preliminary Beta Strep not A,B or D 12/22/17 17:05 Blood - Peripheral Aerobic Blood Culture - Preliminary Beta Strep not A,B or D 12/22/17 17:05 Blood - Peripheral Anaerobic Blood Culture - Preliminary Beta Strep not A,B or D 12/24/17 06:11 Blood - Peripheral Aerobic Blood Culture - Pending 12/24/17 06:11 Blood - Peripheral Anaerobic Blood Culture - Pending 12/24/17 06:17 Blood - Peripheral Aerobic Blood Culture - Pending 12/24/17 06:17 Blood - Peripheral Anaerobic Blood Culture - Pending Lab - Hematology Results 12/22/17 12/23/17 12/24/17 17:04 08:55 06:17 WBC 19.7 H 17.4 H 14.2 H RBC 4.69 4.09 L 4.25 L Hgb 14.4 12.3 L D 12.8 L Hct 42.5 36.9 L 38.0 L MCV 90.5 90.2 89.4 MCH 30.8 30.1 30.2 MCHC 34.0 33.3 33.8 RDW 14.3 14.8 14.8 Plt Count 188 152 149 L MPV 8.8 8.7 8.7 Prelim Diff (Auto) Manual diff required Neut % (Auto) 90.1 H 82.3 H Lymph % (Auto) 3.8 L 10.8 [place] % (Auto) 5.9 6.6 Eos % (Auto) 0.0 0.1 Baso % (Auto) 0.2 0.2 Neut # (Auto) 15.7 H 11.7 H Lymph # (Auto) 0.7 L 1.5 [place] # (Auto) 1.0 H 0.9 Eos # (Auto) 0.0 0.0 Baso # (Auto) 0.0 0.0 WBC Differential Manual diff final . . Seg Neuts % (Manual) 60 Band Neuts % (Manual) 35 H Lymphocytes % (Manual) 1 L Monocytes % (Manual) 4 Abs Neuts (Manual) 18.7 H Differential Comment . Auto diff final Auto diff final Toxic Granulation 1+ H Platelet Estimate Normal Platelet Morphology Enlarged H Lab - Chemistry Results 12/22/17 12/22/17 12/22/17 17:03 17:04 17:30 Sodium 129 L Potassium 4.6 Chloride 93 L Carbon Dioxide 22.2 Anion Gap 14 BUN 38 H Creatinine 2.46 H Estimated GFR 27 L POC Glucose 429 H Random Glucose 401 H Lactic Acid 4.7 H* Calcium 9.0 Magnesium 1.2 L Total Bilirubin 0.8 AST 27 ALT 35 Alkaline Phosphatase 104 Total Creatine Kinase 48 Troponin I Less than 0.02 L B-Natriuretic Peptide Total Protein 7.9 Albumin 3.6 Lipase 149 12/22/17 12/23/17 12/23/17 19:45 08:17 08:55 Sodium 127 L Potassium 4.5 Chloride 95 L Carbon Dioxide 19.6 L Anion Gap 12 BUN 44 H Creatinine 2.72 H Estimated GFR 24 L POC Glucose 481 H* Random Glucose 435 H Lactic Acid 4.5 H* Calcium 8.1 L D Magnesium Total Bilirubin AST ALT Alkaline Phosphatase Total Creatine Kinase Troponin I B-Natriuretic Peptide Total Protein Albumin Lipase 12/23/17 12/23/17 12/23/17 08:55 12:20 17:37 Sodium Potassium Chloride Carbon Dioxide Anion Gap BUN Creatinine Estimated GFR POC Glucose 384 H 289 H Random Glucose Lactic Acid Calcium Magnesium Total Bilirubin AST ALT Alkaline Phosphatase Total Creatine Kinase Troponin I B-Natriuretic Peptide 152 H Total Protein Albumin Lipase 12/23/17 12/24/17 12/24/17 20:09 06:17 09:13 Sodium 133 L Potassium 3.9 Chloride 99 Carbon Dioxide 23.4 Anion Gap 11 BUN 42 H Creatinine 2.63 H Estimated GFR 25 L POC Glucose 357 H 345 H Random Glucose 253 H D Lactic Acid Calcium 8.1 L Magnesium Total Bilirubin AST ALT Alkaline Phosphatase Total Creatine Kinase Troponin I B-Natriuretic Peptide Total Protein Albumin Lipase 12/24/17 12:22 Sodium Potassium Chloride Carbon Dioxide Anion Gap BUN Creatinine Estimated GFR POC Glucose 360 H Random Glucose Lactic Acid Calcium Magnesium Total Bilirubin AST ALT Alkaline Phosphatase Total Creatine Kinase Troponin I B-Natriuretic Peptide Total Protein Albumin Lipase Imaging: ITS Impressions Abdomen/Pelvis CT 12/22/17 17:16 CONCLUSION: Chest X-Ray 12/22/17 17:16 CONCLUSION: 1. Mild to moderate cardiomegaly. 2. No definite evidence of pneumonia. Physical Exam: GENERAL: NAD, morbidly obese SKIN: Warm and dry. CARDIOVASCULAR: Regular rate and rhythm. RESPIRATORY: No accessory muscle use. Clear to auscultation. Breath sounds equal bilaterally. GASTROINTESTINAL: Abdomen soft, mildly diffusely tender, markedly distended. Hepatic and splenic margins not palpable. MUSCULOSKELETAL: Extremities without clubbing, cyanosis, or edema. No obvious deformities. NEUROLOGICAL: Awake and alert. No obvious cranial nerve deficits. Motor grossly within normal limits. Five out of 5 muscle strength in the arms and legs. Normal speech. PSYCHIATRIC: cooperative Assessment and Plan - Plan Sepsis, streptococcal source is GI: pt had months of h/o diarrhea, abd pain an dvomiting CT is unrevealing 2 D echo negative, but tech difficult - dc vanco, zosyn start Unasyn repeat BC coloscopy - GI is consulted stool studies consider repeating CT with contrast if non revealing colonoscopy and GFR> 30 CHIDI if persistent bactremia and /or no intraabd source discoverd
[2017-12-24] MEDS: Ampicillin/Sulbactam Inj 3 GM in Sodium Chloride 0.9% Inj 100 ML IV.SIG SCH ×2 (18:18→21:01)
--- NOTE | 2017-12-24 18:42 | P.PNGI ---
Subjective Interval history: Patient is laying in bed, seems to be comfortable, still having some loose bowel , his nausea subsided Physical Exam Vital signs: Vital Signs 12/23/17 20:00 12/24/17 00:00 12/24/17 04:00 Temperature 99.1 F 98.9 F 97.8 F Pulse Rate 99 H 95 H 109 H Respiratory Rate 18 18 18 Blood Pressure 107/59 L 110/62 100/61 Pulse Oximetry 97 96 93 L 12/24/17 08:00 12/24/17 12:00 12/24/17 16:00 Temperature 98.0 F 97.8 F 97.6 F Pulse Rate 93 H 85 95 H Respiratory Rate 18 18 18 Blood Pressure 101/57 L 104/60 97/58 L Pulse Oximetry 94 L 96 97 Intake & Output 12/23/17 12/24/17 12/24/17 18:59 06:59 18:59 Intake Total 1340 / 1340 1340 / 1340 720 / 720 Output Total 125 / 125 650 / 650 600 / 600 Balance 1215 / 1215 690 / 690 120 / 120 Weight 158.7 kg Intake: IV 1100 / 1100 1100 / 1100 NS Inj 1,000 ML @ 100 mls/hr IV 1000 / 1000 1000 / 1000 .CONT .Q10H [facility] Rx#:[id number] Zosyn 3.375 GM Premix 50 ML @ 100 / 100 100 / 100 100 mls/hr IV.SIG Q6H [facility] Rx#: [id number] Oral 240 / 240 240 / 240 720 / 720 Output: Urine 125 / 125 650 / 650 600 / 600 Other: Date of Last Bowel Movement 12/23/17 12/24/17 # Bowel Movements 0 1 - Constitutional no acute distress - Routine HEENT Exam Head: Present: normocephalic, atraumatic Eye: Present: EOMI, PERRL ENT: Present: mucous membranes moist - Routine Neck Exam Present: supple, full ROM - Routine Respiratory Exam Comments: Lung exam clear to auscultation - Routine Cardiovascular Exam Present: RRR, S1, S2 - Routine Abdominal Exam Present: soft, normoactive bowel sounds Comments: Morbid obesity - Routine Extremities Exam Present: edema Results - Labs CBC & Chem 7: 12/24/17 06:17 12/24/17 06:17 Laboratory Results - last 24 hr 12/23/17 12/24/17 12/24/17 20:09 06:17 06:17 WBC 14.2 H RBC 4.25 L Hgb 12.8 L Hct 38.0 L MCV 89.4 MCH 30.2 MCHC 33.8 RDW 14.8 Plt Count 149 L MPV 8.7 Neut % (Auto) 82.3 H Lymph % (Auto) 10.8 [place] % (Auto) 6.6 Eos % (Auto) 0.1 Baso % (Auto) 0.2 Neut # (Auto) 11.7 H Lymph # (Auto) 1.5 [place] # (Auto) 0.9 Eos # (Auto) 0.0 Baso # (Auto) 0.0 WBC Differential . Differential Comment Auto diff final Sodium 133 L Potassium 3.9 Chloride 99 Carbon Dioxide 23.4 Anion Gap 11 BUN 42 H Creatinine 2.63 H Estimated GFR 25 L POC Glucose 357 H Random Glucose 253 H D Calcium 8.1 L Random Vancomycin 15.4 12/24/17 12/24/17 12/24/17 09:13 12:22 16:35 WBC RBC Hgb Hct MCV MCH MCHC RDW Plt Count MPV Neut % (Auto) Lymph % (Auto) [place] % (Auto) Eos % (Auto) Baso % (Auto) Neut # (Auto) Lymph # (Auto) [place] # (Auto) Eos # (Auto) Baso # (Auto) WBC Differential Differential Comment Sodium Potassium Chloride Carbon Dioxide Anion Gap BUN Creatinine Estimated GFR POC Glucose 345 H 360 H 261 H Random Glucose Calcium Random Vancomycin Microbiology 12/22/17 17:25 Blood - Peripheral Aerobic Blood Culture - Preliminary Beta Strep not A,B or D 12/22/17 17:25 Blood - Peripheral Anaerobic Blood Culture - Preliminary Beta Strep not A,B or D 12/22/17 17:05 Blood - Peripheral Aerobic Blood Culture - Preliminary Beta Strep not A,B or D 12/22/17 17:05 Blood - Peripheral Anaerobic Blood Culture - Preliminary Beta Strep not A,B or D - Imaging Impressions Chest X-Ray 12/22/17 17:16 CONCLUSION: 1. Mild to moderate cardiomegaly. 2. No definite evidence of pneumonia. Assessment and Plan - Plan Plan 12-23-17 Assessment: - Diarrhea x 6 months, states intermittent but has more diarrhea stools than formed stools. (+) fecal urgency but denies fecal incontinence. Denies hematochezia and melena but states not pay that close attention. On a bad day reports around 3 stools a day. Denies abdominal pain and cramping. Also complaining of nausea and dry heaves, he states began since admission, denies hematemesis and coffee ground emesis Last colonoscopy in 2011, reports one polyp Last EGD in 2007, states normal exam CT abdomen and pelvis WO IV contrast --> Hepatic steatosis. Bilateral renal masses, may represent cysts, scattered colonic diverticula, prominent fat within the inguinal canals which could suggest hernias. No bowel is seen in these regions. C. Diff negative - Sepsis, blood cultures positive for gram positive cocci suggestive of streptococcus, final micro report is pending - A-fib- on Eliquis- last dosage was this morning - Elevated BGL- Known DM, takes Metformin for years, states blood sugars are in 200s at home, since hospitalization has been over 400, likely secondary to infection- this may be part of the etiology for nausea - SOB- chest x-ray showing mild to moderate cardiomegaly- echo pending - ANA on CKD 12-24-17 patient complained of diarrhea for a long time almost a year according to him but got worse recently, feeling sick when he came to the hospital, he has positive gram cocci final culture is pending, he is off of Eliquis Plan: Discussed with Dr. Souza from [place], she recommended endoscopy and colonoscopy, possible repeat CT scan with contrast EGD and colonoscopy Wednesday Will hold Eliquis, needs longer due to poor kidney function Continue with current supportive care Further recommendations to follow
[2017-12-24] MEDS: Insulin Detemir Inj 1,000 UNIT/10 ML Vial SQ SCH (21:03)
[2017-12-25] MEDS: Ampicillin/Sulbactam Inj 3 GM in Sodium Chloride 0.9% Inj 100 ML IV.SIG SCH ×4 (02:31→20:22)
[2017-12-25 07:26] LABS: Baso % (Auto) 0.4 % (0.0-2.0); Eos # (Auto) 0.1 th/mm3 (0.0-0.4); Eos % (Auto) 1.1 % (0.0-4.0); Hematocrit 36.2 % (39.0-51.0); Hemoglobin 12.4 gm/dL (13.0-17.0); Lymph # (Auto) 1.3 th/mm3 (1.0-4.8); Lymph % (Auto) 18.5 % (9.0-44.0); Mean Corpuscular HGB Conc 34.2 % (32.0-36.0); Mean Corpuscular Hemoglobin 30.5 pg (27.0-34.0); Mean Corpuscular Volume 89.1 fL (80.0-100.0); Mean Platelet Volume 8.3 fL (7.0-11.0); Mono # (Auto) 0.5 th/mm3 (0.0-0.9); Mono % (Auto) 6.9 % (0.0-8.0); Neut # (Auto) 5.2 th/mm3 (1.8-7.7); Neut % (Auto) 73.1 % (16.0-70.0); Platelet Count 150 th/mm3 (150-450); Red Blood Count 4.07 mil/mm3 (4.50-5.90); Red Cell Distribution Width 14.7 % (11.6-17.2); White Blood Count 7.1 th/mm3 (4.0-11.0)
[2017-12-25] MEDS ORDERED: Pharmacy Ordered Lab Info OTHER ONE (07:45)
[2017-12-25 07:52] LABS: Carbon Dioxide 28.7 meq/L (21.0-32.0); Potassium 3.7 meq/L (3.5-5.1)
[2017-12-25] MEDS: Loratadine 10 MG Tablet PO SCH (08:58)
[2017-12-25] MEDS: Atenolol 50 MG Tablet PO SCH (08:58)
[2017-12-25] MEDS: Insulin NovoLOG Aspart Correctional Sugar Inj SQ SCH ×7 (09:01→20:21)
--- NOTE | 2017-12-25 10:22 | P.PNGI ---
Subjective Interval history: Pt is sitting up in chair, cont. to have frequent loose stools, no bleeding, not having N/V any more. Physical Exam Vital signs: Vital Signs 12/24/17 12:00 12/24/17 16:00 12/24/17 20:00 Temperature 97.8 F 97.6 F 97.5 F L Pulse Rate 81 93 H 93 H Respiratory Rate 18 18 17 Blood Pressure 104/60 97/58 L 104/64 Pulse Oximetry 96 97 99 12/25/17 00:00 12/25/17 04:00 Temperature 97.6 F 98.4 F Pulse Rate 93 H 90 Respiratory Rate 19 20 Blood Pressure 103/59 L 99/53 L Pulse Oximetry 96 97 Intake & Output 12/24/17 12/25/17 12/25/17 18:59 06:59 18:59 Intake Total 1720 / 1720 200 / 200 Output Total 600 / 600 950 / 950 Balance 1120 / 1120 -750 / -750 Weight 158.2 kg Intake: IV 1000 / 1000 200 / 200 NS Inj 1,000 ML @ 100 mls/hr IV 1000 / 1000 .CONT .Q10H [facility] Rx#:[id number] Unasyn Inj 3 GM In NS Inj 100 200 / 200 ML @ 200 mls/hr IV.SIG Q6H [facility] Rx#:[id number] Oral 720 / 720 Output: Urine 600 / 600 950 / 950 Other: Date of Last Bowel Movement 12/24/17 12/24/17 # Bowel Movements 1 2 - Constitutional no acute distress - Routine HEENT Exam Head: Present: normocephalic - Routine Neck Exam Present: supple - Routine Respiratory Exam Present: CTA bilaterally - Routine Cardiovascular Exam Present: RRR - Routine Abdominal Exam Present: soft, normoactive bowel sounds, tenderness. Absent: distended - Routine Extremities Exam Present: edema - Routine Skin Exam Present: intact, dry - Routine Neurological Exam Present: alert, oriented X3 - Routine Psychiatric Exam Present: normal affect Results - Labs CBC & Chem 7: 12/25/17 05:57 12/25/17 05:57 Laboratory Results - last 24 hr 12/24/17 12/24/17 12/24/17 12:22 16:35 20:59 WBC RBC Hgb Hct MCV MCH MCHC RDW Plt Count MPV Neut % (Auto) Lymph % (Auto) [place] % (Auto) Eos % (Auto) Baso % (Auto) Neut # (Auto) Lymph # (Auto) [place] # (Auto) Eos # (Auto) Baso # (Auto) WBC Differential Differential Comment Sodium Potassium Chloride Carbon Dioxide Anion Gap BUN Creatinine Estimated GFR POC Glucose 360 H 261 H 187 H Random Glucose Calcium 12/25/17 12/25/17 12/25/17 05:57 05:57 08:29 WBC 7.1 RBC 4.07 L Hgb 12.4 L Hct 36.2 L MCV 89.1 MCH 30.5 MCHC 34.2 RDW 14.7 Plt Count 150 MPV 8.3 Neut % (Auto) 73.1 H Lymph % (Auto) 18.5 [place] % (Auto) 6.9 Eos % (Auto) 1.1 Baso % (Auto) 0.4 Neut # (Auto) 5.2 Lymph # (Auto) 1.3 [place] # (Auto) 0.5 Eos # (Auto) 0.1 Baso # (Auto) 0.0 WBC Differential . Differential Comment Auto diff final Sodium 140 Potassium 3.7 Chloride 105 Carbon Dioxide 28.7 Anion Gap 6 BUN 36 H Creatinine 2.05 H Estimated GFR 33 L POC Glucose 170 H Random Glucose 126 H D Calcium 8.0 L Microbiology 12/22/17 17:05 Blood - Peripheral Aerobic Blood Culture - Preliminary Beta Strep not A,B or D 12/22/17 17:05 Blood - Peripheral Anaerobic Blood Culture - Preliminary Beta Strep not A,B or D 12/22/17 17:25 Blood - Peripheral Aerobic Blood Culture - Preliminary Beta Strep not A,B or D 12/22/17 17:25 Blood - Peripheral Anaerobic Blood Culture - Preliminary Beta Strep not A,B or D - Imaging Impressions Chest X-Ray 12/22/17 17:16 CONCLUSION: 1. Mild to moderate cardiomegaly. 2. No definite evidence of pneumonia. Assessment and Plan - Plan Plan 12-23-17 Assessment: - Diarrhea x 6 months, states intermittent but has more diarrhea stools than formed stools. (+) fecal urgency but denies fecal incontinence. Denies hematochezia and melena but states not pay that close attention. On a bad day reports around 3 stools a day. Denies abdominal pain and cramping. Also complaining of nausea and dry heaves, he states began since admission, denies hematemesis and coffee ground emesis Last colonoscopy in 2011, reports one polyp Last EGD in 2007, states normal exam CT abdomen and pelvis WO IV contrast --> Hepatic steatosis. Bilateral renal masses, may represent cysts, scattered colonic diverticula, prominent fat within the inguinal canals which could suggest hernias. No bowel is seen in these regions. C. Diff negative - Sepsis, blood cultures positive for gram positive cocci suggestive of streptococcus, final micro report is pending - A-fib- on Eliquis- last dosage was this morning - Elevated BGL- Known DM, takes Metformin for years, states blood sugars are in 200s at home, since hospitalization has been over 400, likely secondary to infection- this may be part of the etiology for nausea - SOB- chest x-ray showing mild to moderate cardiomegaly- echo pending - ANA on CKD Plan: - Cardiac diet - EGD and colonoscopy Wednesday - Clear liquid tomorrow - Golytely tomorrow - NPO Wednesday [place] - Add Imodium as needed - Continue with current supportive care - Further recommendations to follow - Pt seen and examined by Dr. Nichols and myself and this note is written on his behalf.
[2017-12-25] MEDS ORDERED: Loperamide 2 MG Capsule PO PRN (10:25)
--- NOTE | 2017-12-25 12:58 | P.PNIM ---
Subjective Interval history: Pt seen and examined for f/u of Strep bacteremia. AFVSS. No acute events overnight. He reports he is starting to feel much better. Still with some diarrhea but improving. Also complaining of generalized abdominal pain when he coughs but otherwise no pain at rest. Physical Exam Vital signs: Vital Signs 12/24/17 16:00 12/24/17 20:00 12/25/17 00:00 Temperature 97.6 F 97.5 F L 97.6 F Pulse Rate 93 H 93 H 93 H Respiratory Rate 18 17 19 Blood Pressure 97/58 L 104/64 103/59 L Pulse Oximetry 97 99 96 12/25/17 04:00 12/25/17 09:00 Temperature 98.4 F Pulse Rate 90 98 H Respiratory Rate 20 Blood Pressure 99/53 L Pulse Oximetry 97 Intake & Output 12/24/17 12/25/17 12/25/17 18:59 06:59 18:59 Intake Total 1720 / 1720 200 / 200 Output Total 600 / 600 950 / 950 Balance 1120 / 1120 -750 / -750 Weight 158.2 kg Intake: IV 1000 / 1000 200 / 200 NS Inj 1,000 ML @ 100 mls/hr IV 1000 / 1000 .CONT .Q10H [facility] Rx#:[id number] Unasyn Inj 3 GM In NS Inj 100 200 / 200 ML @ 200 mls/hr IV.SIG Q6H [facility] Rx#:[id number] Oral 720 / 720 Output: Urine 600 / 600 950 / 950 Other: Date of Last Bowel Movement 12/24/17 12/24/17 # Bowel Movements 1 2 Narrative: GENERAL: WN, WD [] resting in bed in NAD. SKIN: Warm and dry. HEENT: AT/NC. Pupils equal and round. MMM. NECK: Supple no tender LAD or JVD. HEART: RRR no m/r/g. LUNGS: CTAB without wheezes or crackles. ABDOMEN: +BS, soft, NT, ND. EXTREMITIES: No LE edema. 2+ pedal pulses. NEURO: Awake and alert. Nonfocal. PSYCH: Appropriate mood and affect. Results - Labs CBC & Chem 7: 12/25/17 05:57 12/25/17 05:57 Laboratory Results - last 24 hr 12/24/17 12/24/17 12/25/17 16:35 20:59 05:57 WBC 7.1 RBC 4.07 L Hgb 12.4 L Hct 36.2 L MCV 89.1 MCH 30.5 MCHC 34.2 RDW 14.7 Plt Count 150 MPV 8.3 Neut % (Auto) 73.1 H Lymph % (Auto) 18.5 [place] % (Auto) 6.9 Eos % (Auto) 1.1 Baso % (Auto) 0.4 Neut # (Auto) 5.2 Lymph # (Auto) 1.3 [place] # (Auto) 0.5 Eos # (Auto) 0.1 Baso # (Auto) 0.0 WBC Differential . Differential Comment Auto diff final Sodium Potassium Chloride Carbon Dioxide Anion Gap BUN Creatinine Estimated GFR POC Glucose 261 H 187 H Random Glucose Calcium 12/25/17 12/25/17 12/25/17 05:57 08:29 12:39 WBC RBC Hgb Hct MCV MCH MCHC RDW Plt Count MPV Neut % (Auto) Lymph % (Auto) [place] % (Auto) Eos % (Auto) Baso % (Auto) Neut # (Auto) Lymph # (Auto) [place] # (Auto) Eos # (Auto) Baso # (Auto) WBC Differential Differential Comment Sodium 140 Potassium 3.7 Chloride 105 Carbon Dioxide 28.7 Anion Gap 6 BUN 36 H Creatinine 2.05 H Estimated GFR 33 L POC Glucose 170 H 265 H Random Glucose 126 H D Calcium 8.0 L Microbiology 12/24/17 06:11 Blood - Peripheral Aerobic Blood Culture - Preliminary No growth in 1 day 12/24/17 06:11 Blood - Peripheral Anaerobic Blood Culture - Preliminary No growth in 1 day 12/24/17 06:17 Blood - Peripheral Aerobic Blood Culture - Preliminary No growth in 1 day 12/24/17 06:17 Blood - Peripheral Anaerobic Blood Culture - Preliminary No growth in 1 day 12/22/17 17:25 Blood - Peripheral Aerobic Blood Culture - Final Beta Strep not A,B or D 12/22/17 17:25 Blood - Peripheral Anaerobic Blood Culture - Final Beta Strep not A,B or D 12/22/17 17:05 Blood - Peripheral Aerobic Blood Culture - Final Beta Strep not A,B or D 12/22/17 17:05 Blood - Peripheral Anaerobic Blood Culture - Final Beta Strep not A,B or D Assessment and Plan - Plan 67 YOWM with history of A fib, DM, CHF, and CKD admitted 12/22 for septic shock and Strep bacteremia after presenting with months of abdominal pain and diarrhea. 1. Septic shock, Strep bacteremia - Pt with leukocytosis, tachycardia, and lactic acid >4 on admission - CT A/P negative - CXR with cardiomegaly otherwise no acute process - U/A negative - Questionable cellulitis RLE though likely source is GI given symptoms of abdominal pain and diarrhea - 2D echo negative for vegetation - All four blood cultures growing Strep - ID following, started on Unasyn yesterday and d/c'd vanco and Zosyn - Repeat blood cultures pending, possible CHIDI if + 2. Abdominal pain - CT A/P negative - Pain is improving - GI following, planning EGD/colonoscopy Wednesday - Continue Reglan - Zofran PRN 3. RLE cellulitis? - RLE erythema, warmth, and swelling - Check Doppler U/S to rule out DVT - On Unasyn - Continue to monitor 4. ANA superimposed on CKD - Metformin held - Avoid nephrotoxins - Continue to monitor 5. Atrial fibrillation - Continue Eliquis - Continue atenolol 6. CHF - EF 40-45% - Continue home Spironolactone - Should be on an FORD or ARB but given ANA will hold off 7. HTN - Continue HCTZ/spironolactone 8. DM - Continue Levemir 30 units QHS - SSI per protocol 9. BPH - Continue home Flomax DVT prophylaxis: On Eliquis Code Status: FULL Discussed Condition With: The patient
--- NOTE | 2017-12-25 17:58 | US ---
EXAM DATE: 12/25/2017 5:44 PM EDT AGE/SEX: 67 years / Male INDICATIONS: Right leg swelling and redness. CLINICAL DATA: This is the patient's initial encounter. Patient reports that signs and symptoms have been present for 3 days and indicates a pain score of 4/10. MEDICAL/SURGICAL HISTORY: . Atrial fibrillation. Chronic kidney disease. GOUT. Mitral valve ins ufficiency. Obesity. Diabetes. None. COMPARISON: No prior exams available for comparison. TECHNIQUE: Venous ultrasound of both lower extremities was performed from the inguinal ligament to t he proximal calf. Real-time, color Doppler and spectral tracing, compression and augmentation techni ques were used. FINDINGS: Normal compression of the deep venous system from the inguinal region to the proximal calf . No echogenic clot is seen. Normal response of the venous system to augmentation and respiration. 2. 3 cm right inguinal lymph node CONCLUSION: 1. Negative for deep venous thrombosis 2. 2.3 cm right inguinal lymph node, nonspecific Electronically signed by: Harry Hutchins MD 12/25/2017 5:56 PM EDT
[2017-12-25] MEDS: Sod Chloride 0.9% Inj 1,000 ML IV.CONT SCH (18:10)
[2017-12-25] MEDS: Insulin Detemir Inj 1,000 UNIT/10 ML Vial SQ SCH (20:20)
[2017-12-26] MEDS: Ampicillin/Sulbactam Inj 3 GM in Sodium Chloride 0.9% Inj 100 ML IV.SIG SCH ×4 (02:01→20:36)
[2017-12-26] MEDS: Sod Chloride 0.9% Inj 1,000 ML IV.CONT SCH ×3 (02:05→16:28)
[2017-12-26] MEDS ORDERED: Acetaminophen/Codeine 300/30 MG Tablet PO ONE ×2 (05:57→18:05)
[2017-12-26 07:11] LABS: Hematocrit 32.9 % (39.0-51.0); Mean Corpuscular HGB Conc 33.3 % (32.0-36.0); Mean Corpuscular Hemoglobin 29.4 pg (27.0-34.0); Mean Corpuscular Volume 88.3 fL (80.0-100.0); Mean Platelet Volume 8.1 fL (7.0-11.0); Platelet Count 154 th/mm3 (150-450); Red Blood Count 3.73 mil/mm3 (4.50-5.90); Red Cell Distribution Width 14.2 % (11.6-17.2); White Blood Count 7.7 th/mm3 (4.0-11.0)
[2017-12-26 07:28] LABS: Calcium 7.7 mg/dL (8.5-10.1); Carbon Dioxide 23.4 meq/L (21.0-32.0); Potassium 3.7 meq/L (3.5-5.1)
[2017-12-26] MEDS: Atenolol 50 MG Tablet PO SCH (09:28)
[2017-12-26] MEDS: Insulin NovoLOG Aspart Correctional Sugar Inj SQ SCH ×7 (09:30→20:39)
--- NOTE | 2017-12-26 13:19 | P.PNIM ---
Subjective Interval history: Pt seen and examined for f/u of beta strep bacteremia. AFVSS. No acute events overnight. Pt reports he is feeling "great." Only complaint is chronic swelling of his ankles. Denies CP, SOB, N/V, palpitations. Abdominal pain has resolved. Tolerating PO. Ambulating the halls. Physical Exam Vital signs: Vital Signs 12/25/17 16:00 12/25/17 20:00 12/26/17 00:00 Temperature 97.4 F L 97.2 F L 97.5 F L Pulse Rate 92 H 91 H 92 H Respiratory Rate 18 20 18 Blood Pressure 139/70 119/76 126/56 L Pulse Oximetry 100 98 96 12/26/17 04:00 12/26/17 08:00 Temperature 97.3 F L 97.8 F Pulse Rate 100 H 93 H Respiratory Rate 18 18 Blood Pressure 114/65 113/64 Pulse Oximetry 95 98 Intake & Output 12/25/17 12/26/17 12/26/17 18:59 06:59 18:59 Intake Total 1800 / 1800 1680 / 1680 Balance 1800 / 1800 1680 / 1680 Weight 159 kg Intake: IV 1200 / 1200 1200 / 1200 NS Inj 1,000 ML @ 100 mls/hr IV 1000 / 1000 1000 / 1000 .CONT .Q10H LUZMARIA Rx#:[id number] Unasyn Inj 3 GM In NS Inj 100 200 / 200 200 / 200 ML @ 200 mls/hr IV.SIG Q6H LUZMARIA Rx#:[id number] Oral 600 / 600 480 / 480 Other: # Voids 4 6 Date of Last Bowel Movement 12/24/17 # Bowel Movements 0 Narrative: GENERAL: WN, WD male sitting up in chair in NAD. SKIN: Warm and dry. HEENT: AT/NC. Pupils equal and round. MMM. NECK: Supple no tender LAD or JVD. HEART: RRR no m/r/g. LUNGS: CTAB without wheezes or crackles. ABDOMEN: +BS, soft, NT, ND. EXTREMITIES: Trace LE edema. Erythema around R cruz. NEURO: Awake and alert. Nonfocal. PSYCH: Appropriate mood and affect. Results - Labs CBC & Chem 7: 12/26/17 06:56 12/26/17 06:56 Laboratory Results - last 24 hr 12/25/17 12/25/17 12/26/17 17:14 19:47 06:56 WBC 7.7 RBC 3.73 L Hgb 11.0 L Hct 32.9 L MCV 88.3 MCH 29.4 MCHC 33.3 RDW 14.2 Plt Count 154 MPV 8.1 Sodium Potassium Chloride Carbon Dioxide Anion Gap BUN Creatinine Estimated GFR POC Glucose 224 H 197 H Random Glucose Calcium 12/26/17 12/26/17 12/26/17 06:56 08:25 11:48 WBC RBC Hgb Hct MCV MCH MCHC RDW Plt Count MPV Sodium 140 Potassium 3.7 Chloride 108 H Carbon Dioxide 23.4 Anion Gap 9 BUN 28 H Creatinine 1.62 H Estimated GFR 43 L POC Glucose 137 H 141 H Random Glucose 133 H Calcium 7.7 L Microbiology 12/24/17 06:11 Blood - Peripheral Aerobic Blood Culture - Preliminary No growth in 2 days 12/24/17 06:11 Blood - Peripheral Anaerobic Blood Culture - Preliminary No growth in 2 days 12/24/17 06:17 Blood - Peripheral Aerobic Blood Culture - Preliminary No growth in 2 days 12/24/17 06:17 Blood - Peripheral Anaerobic Blood Culture - Preliminary No growth in 2 days 12/22/17 17:25 Blood - Peripheral Aerobic Blood Culture - Final Beta Strep not A,B or D 12/22/17 17:25 Blood - Peripheral Anaerobic Blood Culture - Final Beta Strep not A,B or D 12/22/17 17:05 Blood - Peripheral Aerobic Blood Culture - Final Beta Strep not A,B or D 12/22/17 17:05 Blood - Peripheral Anaerobic Blood Culture - Final Beta Strep not A,B or D - Imaging Impressions Venous Doppler Study 12/25/17 00:00 CONCLUSION: 1. Negative for deep venous thrombosis 2. 2.3 cm right inguinal lymph node, nonspecific Assessment and Plan - Plan 67 YOWM with history of A fib, DM, CHF, and CKD admitted 12/22 for septic shock and Strep bacteremia after presenting with months of abdominal pain and diarrhea. 1. Septic shock, Strep bacteremia - Shock resolved - Pt with leukocytosis, tachycardia, and lactic acid >4 on admission - CT A/P negative - CXR with cardiomegaly otherwise no acute process - U/A negative - Questionable cellulitis RLE though likely source is GI given symptoms of abdominal pain and diarrhea - 2D echo negative for vegetation - All four blood cultures growing beta Strep - Repeat blood cultures no growth - ID following, on Unasyn 2. Abdominal pain - CT A/P negative - Pain resolved - GI following, planning EGD/colonoscopy tomorrow, prep tonight - D/C Reglan - Zofran PRN 3. RLE cellulitis? - RLE erythema, warmth, and swelling - Doppler U/S negative for DVT - On Unasyn - Continue to monitor 4. ANA superimposed on CKD - Metformin held - Creatinine improving - Avoid nephrotoxins - Continue to monitor 5. Atrial fibrillation - Continue Eliquis - Continue atenolol 6. CHF - EF 40-45% - Continue home Spironolactone - Should be on an FORD or ARB but given ANA will hold off 7. HTN - Continue HCTZ/spironolactone 8. DM - Continue Levemir 30 units QHS - SSI per protocol 9. BPH - Continue home Flomax DVT prophylaxis: On Eliquis Code Status: Full Discussed Condition With: The patient and RN
--- NOTE | 2017-12-26 15:33 | P.PNGI ---
Subjective Interval history: Patient is resting in the bed Currently denies any nausea or vomiting Chief complaint right lower leg cellulitis, morbid obesity GI evaluation for diarrhea, loose stools which show gradual improvement Plan for EGD colonoscopy in a.m. Current hemoglobin 11. Physical Exam Vital signs: Vital Signs 12/25/17 16:00 12/25/17 20:00 12/26/17 00:00 Temperature 97.4 F L 97.2 F L 97.5 F L Pulse Rate 92 H 91 H 92 H Respiratory Rate 18 20 18 Blood Pressure 139/70 119/76 126/56 L Pulse Oximetry 100 98 96 12/26/17 04:00 12/26/17 08:00 Temperature 97.3 F L 97.8 F Pulse Rate 100 H 93 H Respiratory Rate 18 18 Blood Pressure 114/65 113/64 Pulse Oximetry 95 98 Intake & Output 12/25/17 12/26/17 12/26/17 18:59 06:59 18:59 Intake Total 1800 / 1800 1680 / 1680 Balance 1800 / 1800 1680 / 1680 Weight 159 kg Intake: IV 1200 / 1200 1200 / 1200 NS Inj 1,000 ML @ 100 mls/hr IV 1000 / 1000 1000 / 1000 .CONT .Q10H LUZMARIA Rx#:[id number] Unasyn Inj 3 GM In NS Inj 100 200 / 200 200 / 200 ML @ 200 mls/hr IV.SIG Q6H LUZMARIA Rx#:[id number] Oral 600 / 600 480 / 480 Other: # Voids 4 6 Date of Last Bowel Movement 12/24/17 # Bowel Movements 0 - Constitutional mild distress, morbidly obese - Routine HEENT Exam Head: Present: normocephalic, atraumatic Eye: Present: EOMI ENT: Present: mucous membranes moist - Routine Neck Exam Present: supple (Obese) - Routine Respiratory Exam Present: decreased breath sounds - Routine Cardiovascular Exam Present: S1, S2 - Routine Abdominal Exam Present: soft (Obese, round,), normoactive bowel sounds - Routine Skin Exam Present: erythema (Right lower extremity) - Routine Neurological Exam Present: alert (Answers questions appropriate) Results - Labs CBC & Chem 7: 12/26/17 06:56 12/26/17 06:56 Laboratory Results - last 24 hr 12/25/17 12/25/17 12/26/17 17:14 19:47 06:56 WBC 7.7 RBC 3.73 L Hgb 11.0 L Hct 32.9 L MCV 88.3 MCH 29.4 MCHC 33.3 RDW 14.2 Plt Count 154 MPV 8.1 Sodium Potassium Chloride Carbon Dioxide Anion Gap BUN Creatinine Estimated GFR POC Glucose 224 H 197 H Random Glucose Calcium 12/26/17 12/26/17 12/26/17 06:56 08:25 11:48 WBC RBC Hgb Hct MCV MCH MCHC RDW Plt Count MPV Sodium 140 Potassium 3.7 Chloride 108 H Carbon Dioxide 23.4 Anion Gap 9 BUN 28 H Creatinine 1.62 H Estimated GFR 43 L POC Glucose 137 H 141 H Random Glucose 133 H Calcium 7.7 L Microbiology 12/24/17 06:11 Blood - Peripheral Aerobic Blood Culture - Preliminary No growth in 2 days 12/24/17 06:11 Blood - Peripheral Anaerobic Blood Culture - Preliminary No growth in 2 days 12/24/17 06:17 Blood - Peripheral Aerobic Blood Culture - Preliminary No growth in 2 days 12/24/17 06:17 Blood - Peripheral Anaerobic Blood Culture - Preliminary No growth in 2 days - Imaging Impressions Venous Doppler Study 12/25/17 00:00 CONCLUSION: 1. Negative for deep venous thrombosis 2. 2.3 cm right inguinal lymph node, nonspecific Assessment and Plan - Plan Plan 12-23-17 Assessment: - Diarrhea x 6 months, states intermittent but has more diarrhea stools than formed stools. (+) fecal urgency but denies fecal incontinence. Denies hematochezia and melena but states not pay that close attention. On a bad day reports around 3 stools a day. Denies abdominal pain and cramping. Also complaining of nausea and dry heaves, he states began since admission, denies hematemesis and coffee ground emesis Last colonoscopy in 2011, reports one polyp Last EGD in 2007, states normal exam CT abdomen and pelvis WO IV contrast --> Hepatic steatosis. Bilateral renal masses, may represent cysts, scattered colonic diverticula, prominent fat within the inguinal canals which could suggest hernias. No bowel is seen in these regions. C. Diff negative - Sepsis, blood cultures positive for gram positive cocci suggestive of streptococcus, final micro report is pending - A-fib- on Eliquis- last dosage was this morning - Elevated BGL- Known DM, takes Metformin for years, states blood sugars are in 200s at home, since hospitalization has been over 400, likely secondary to infection- this may be part of the etiology for nausea - SOB- chest x-ray showing mild to moderate cardiomegaly- echo pending - ANA on CKD 12/26/2017 patient is sitting up in the room, seems to be feeling better from a GI perspective. Currently receiving GoLYTELY prep for EGD colonoscopy tomorrow. Eliquis currently on hold. No obvious bleeding noted patient denies any nausea or vomiting or dysphasia. Plan: -Consent for EGD and colonoscopy Wednesday - Clear liquid - Golytely today - NPO Wednesday MN - Imodium as needed - supportive care - Further recommendations to follow - Pt seen and examined by Dr. Nichols and myself and this note is written on his behalf.
[2017-12-26] MEDS ORDERED: PEG 3350/E-Lyte Soln 4000 ML Bottle PO ONE (16:00)
[2017-12-26] MEDS: HCTZ PO SCH (20:36)
[2017-12-26] MEDS: SPIRONOLACTONE PO SCH (20:36)
[2017-12-26] MEDS: Insulin Detemir Inj 1,000 UNIT/10 ML Vial SQ SCH (20:39)
[2017-12-27] MEDS: Ampicillin/Sulbactam Inj 3 GM in Sodium Chloride 0.9% Inj 100 ML IV.SIG SCH (01:56)
[2017-12-27] MEDS: Sod Chloride 0.9% Inj 1,000 ML IV.CONT SCH ×2 (01:59→03:23)
[2017-12-27] MEDS: Insulin NovoLOG Aspart Correctional Sugar Inj SQ SCH ×7 (08:00→22:09)
[2017-12-27] MEDS: SPIRONOLACTONE PO SCH (08:23)
[2017-12-27] MEDS: HCTZ PO SCH (08:23)
[2017-12-27] MEDS: Atenolol 50 MG Tablet PO SCH (08:37)
--- NOTE | 2017-12-27 10:04 | GIPROC ---
[facility] [address] [facility]. [facility], [address] EGD PROCEDURE REPORT EXAM DATE: 12/27/2017 PATIENT NAME: Johnny Ramirez MR #: [id number] BIRTHDATE: 1950 ATTENDING: Jean Paul Alejandro MD ORDER #: [id number] PAYING TELLER: Shania Coppola STATUS: inpatient INDICATIONS: The patient is a 67 yr old male here for an EGD due to epigastric abdominal pain and iron deficiency anemia PROCEDURE PERFORMED: EGD w/ biopsy MEDICATIONS: None and Per Anesthesia. TOPICAL ANESTHETIC: CONSENT: The patient understands the risks and benefits of the procedure and understands that these risks include, but are not limited to: sedation, allergic reaction, infection, perforation and/or bleeding. Alternative means of evaluation and treatment include, among others: physical exam, x-rays, and/or surgical intervention. The patient elects to proceed with this endoscopic procedure. medical equipment was checked for proper function. Hand hygiene and appropriate measures for infection prevention was taken. After the risks, benefits and alternatives of the procedure were thoroughly explained, Informed consent was verified, confirmed and timeout was successfully executed by the treatment team. The patient was anesthetized with topical anesthesia and the EC-[id number] (Pedi C) endoscope was introduced through the mouth and advanced to the second portion of the duodenum. Retroflexed views revealed no abnormalities The gastroscope was then slowly withdrawn and removed. ESOPHAGUS: There was LA Class A esophagitis noted. A biopsy was performed using cold forceps. Sample sent for histology. STOMACH: There was erythematous moderate gastritis in the gastric antrum. A biopsy was performed using cold forceps. Sample sent for histology. DUODENUM: Multiple non-bleeding, shallow and clean-based ulcers ranging between 3-5 mm in size were found in the 1st part of the duodenum. Biopsies were taken at edge of the ulcers and around the ulcers. ADVERSE EVENTS: There were no complications. IMPRESSIONS: 1. There was LA Class A esophagitis noted; biopsy was performed 2. There was erythematous gastritis in the gastric antrum; biopsy was performed 3. Multiple ulcers ranging between 3-5 mm in size were found in the 1st part of the duodenum; biopsies were taken 4. Retroflexed views revealed no abnormalities RECOMMENDATIONS: 1. Await biopsy results. Biopsy results will not be ready for 7-10 days. If you don't hear from us in two weeks, call our office for biopsy results. 2. Anti-reflux regimen 3. Continue PPI 4. Avoid NSAIDS PATIENT CONDITION: stable DISPOSITION: Inpatient REPEAT EXAM: Return 2 months EGD pending biopsy results Jean Paul Alejandro MD eSigned: Jean Paul Alejandro MD 12/27/2017 10:03 AM cc: PATIENT NAME: Johnny Ramirez MR#: [id number]
[2017-12-27 10:16] LABS: Calcium 7.9 mg/dL (8.5-10.1); Carbon Dioxide 22.6 meq/L (21.0-32.0); Potassium 3.9 meq/L (3.5-5.1)
--- NOTE | 2017-12-27 10:19 | GIPROC ---
[facility] [address] [facility]. [facility], [address] COLONOSCOPY PROCEDURE REPORT EXAM DATE: 12/27/2017 PATIENT NAME: Johnny Ramirez MR #: [id number] BIRTHDATE: 1950 ENDOSCOPIST: Jean Paul Alejandro MD ORDER #: [id number] VICE PRESIDENT AND PORTFOLIO MANAGER: Shania Coppola STATUS: inpatient INDICATIONS: The patient is a 67 yr old male here for a colonoscopy due to iron deficiency anemia PROCEDURE PERFORMED: Colonoscopy with biopsy MEDICATIONS: None and Per Anesthesia. PREP QUALITY: The Marilla Bowel Prep Score was Right colon 1, Mid colon 2, and Left colon 1. Total = 4. ESTIMATED BLOOD LOSS: None CONSENT: The patient understands the risks and benefits of the procedure and understands that these risks include, but are not limited to: sedation, allergic reaction, infection, perforation and/or bleeding. Alternative means of evaluation and treatment include, among others: physical exam, x-rays, and/or surgical intervention. The patient elects to proceed with this endoscopic procedure. medical equipment was checked for proper function. Hand hygiene and appropriate measures for infection prevention was taken. After the risks, benefits and alternatives of the procedure were thoroughly explained, Informed consent was verified, confirmed and timeout was successfully executed by the treatment team. A digital exam revealed external hemorrhoids The Pentax EC-[id number] endoscope was introduced through the anus and advanced to the cecum, which was identified by both the appendix and ileocecal valve. The instrument was then slowly withdrawn as the colon was fully examined. COLON FINDINGS: Severe diverticulosis was noted in the sigmoid colon. No bleeding was noted from the diverticulosis. Two polypoid shaped sessile polyps measuring 10 mm in size were found in the descending colon. A biopsy was performed using cold forceps. Retroflexed views revealed internal hemorrhoids and Retroflexed views revealed small internal hemorrhoids The scope was then completely withdrawn from the patient and the procedure terminated. PROCEDURE WITHDRAWAL TIME:7minutes ADVERSE EVENTS: There were no complications. IMPRESSIONS: 1. Severe diverticulosis was noted in the sigmoid colon 2. Two sessile polyps were found in the descending colon; biopsy was performed using cold forceps 3. Retroflexed views revealed internal hemorrhoids 4. Retroflexed views revealed small internal hemorrhoids 5. Revealed external hemorrhoids RECOMMENDATIONS: 1. Await biopsy results. Biopsy results will not be ready for 7-10 days. If you don't hear from us in two weeks, call our office for results. 2. Continue surveillance 3. Yearly hemoccult 4. No seeds, nuts and popcorn in diet RECALL: Return 1 year Colonoscopy Jean Paul Alejandro MD eSigned: Jean Paul Alejandro MD 12/27/2017 10:19 AM cc: PATIENT NAME: Johnny Ramirez MR#: [id number]
--- NOTE | 2017-12-27 11:22 | P.PNIM ---
Subjective Interval history: Pt seen and examined for f/u Strep bacteremia. Seen shortly after coming back up to the floor from EGD/colonoscopy. He wishes to be able to go home today and reports he is feeling great. His biggest concern is pain and swelling of his right leg. He states this started in the hospital and the Tylenol #3 helps. An adhesive dressing was put over his right calf for what the patient states was a wound after he bumped into the chair. Upon gentle removal of the dressing, some superficial skin sloughed with the adhesive and the area began weeping a clear fluid. The patient states he can hardly stand because of the pain in his leg. Regarding other symptoms, he denies abdominal pain, N/V. States he feels a little gassy after the GI procedures. Physical Exam Vital signs: Vital Signs 12/26/17 12:00 12/26/17 16:00 12/26/17 20:00 Temperature 98.0 F 97.4 F L 97 F L Pulse Rate 93 H 84 98 H Respiratory Rate 18 18 20 Blood Pressure 101/65 109/79 114/66 Pulse Oximetry 98 97 96 12/27/17 00:00 12/27/17 04:00 12/27/17 08:00 Temperature 97.3 F L 98.4 F 99.5 F Pulse Rate 93 H 106 H 113 H Respiratory Rate 18 19 22 Blood Pressure 114/63 116/59 L 136/65 Pulse Oximetry 95 95 94 L 12/27/17 10:34 Temperature 99.1 F Pulse Rate 102 H Respiratory Rate 18 Blood Pressure 92/51 L Pulse Oximetry 97 Intake & Output 12/26/17 12/27/17 12/27/17 18:59 06:59 18:59 Intake Total 1200 / 1200 1860 / 1860 Balance 1200 / 1200 1860 / 1860 Weight 159 kg Intake: IV 1200 / 1200 900 / 900 NS Inj 1,000 ML @ 100 mls/hr IV 1000 / 1000 800 / 800 .CONT .Q10H LUZMARIA Rx#:[id number] Unasyn Inj 3 GM In NS Inj 100 200 / 200 100 / 100 ML @ 200 mls/hr IV.SIG Q6H LUZMARIA Rx#:[id number] Oral 960 / 960 Other: # Voids 6 Date of Last Bowel Movement 12/24/17 12/27/17 # Bowel Movements 15 Narrative: GENERAL: WN, WD male sitting up in chair in NAD. SKIN: Warm and dry. HEENT: AT/NC. Pupils equal and round. MMM. HEART: RRR no m/r/g. LUNGS: CTAB without wheezes or crackles. ABDOMEN: +BS, soft, NT, ND. EXTREMITIES: R cruz and calf erythematous, swollen, and warm from midway distally. Superficial skin sloughed after adhesive removed with clear weeping. NEURO: Awake and alert. Nonfocal. PSYCH: Appropriate mood and affect. Results - Labs CBC & Chem 7: 12/26/17 06:56 12/27/17 08:12 Laboratory Results - last 24 hr 12/26/17 12/26/17 12/26/17 11:48 17:50 19:45 Sodium Potassium Chloride Carbon Dioxide Anion Gap BUN Creatinine Estimated GFR POC Glucose 141 H 94 189 H Random Glucose Calcium 12/27/17 12/27/17 08:12 08:20 Sodium 139 Potassium 3.9 Chloride 107 Carbon Dioxide 22.6 Anion Gap 9 BUN 19 H Creatinine 1.52 H Estimated GFR 46 L POC Glucose 221 H Random Glucose 188 H Calcium 7.9 L Microbiology 12/24/17 06:11 Blood - Peripheral Aerobic Blood Culture - Preliminary No growth in 3 days 12/24/17 06:11 Blood - Peripheral Anaerobic Blood Culture - Preliminary No growth in 3 days 12/24/17 06:17 Blood - Peripheral Aerobic Blood Culture - Preliminary No growth in 3 days 12/24/17 06:17 Blood - Peripheral Anaerobic Blood Culture - Preliminary No growth in 3 days Assessment and Plan - Plan 67 YOWM with history of A fib, DM, CHF, and CKD admitted 12/22 for septic shock and Strep bacteremia after presenting with months of abdominal pain and diarrhea. 1. Septic shock, Strep bacteremia - Shock resolved - Pt with leukocytosis, tachycardia, and lactic acid >4 on admission - CT A/P negative - CXR with cardiomegaly otherwise no acute process - U/A negative - Questionable cellulitis RLE t - Also possible GI source given symptoms of abdominal pain and diarrhea - 2D echo negative for vegetation - All four blood cultures growing beta Strep - Repeat blood cultures no growth - ID following, on Unasyn 2. Abdominal pain, resolved - CT A/P negative - GI following - EGD/colonoscopy done today showing two sessile polyps in the descending colon , severe diverticulosis of the sigmoid colon, internal hemorrhoids, esophagitis , erythematous gastritis, and multiple ulcers in the first part of the duodenum - Start PPI - Avoid NSAIDs 3. RLE cellulitis with superficial sloughing of skin following adhesive removal - RLE erythema, warmth, and swelling - Doppler U/S negative for DVT - On Unasyn - Consult wound care nurse - NO ADHESIVES - Continue to monitor 4. ANA superimposed on CKD - Avoid metformin - Creatinine improving - Avoid nephrotoxins - Continue to monitor 5. Atrial fibrillation - Continue Eliquis - Continue atenolol 6. CHF - EF 40-45% - Continue home Spironolactone - Should be on an FORD or ARB but given ANA will hold off 7. HTN - Continue HCTZ/spironolactone 8. DM - Continue Levemir 30 units QHS - SSI per protocol 9. BPH - Continue home Flomax DVT prophylaxis: On Eliquis Code Status: Full Discharge Planning: When cleared by ID
--- NOTE | 2017-12-27 11:23 | P.DCO ---
- Diagnosis (1) Cellulitis (2) Sepsis - Physical Therapy Order: Evaluate and treat, Improve ambulation, Strength and gait training - Certification I have seen patient Johnny Ramirez on 12/27/17. My clinical findings support the need for the requested home health care services because: Deconditioned with increased weakness, High risk of falls I certify that my clinical findings support that this patient is homebound because: Unsteady gait/balance (1) Cellulitis Qualifiers: Site of cellulitis: extremity Site of cellulitis of extremity: lower extremity Laterality: right Qualified Code(s): L03.115 - Cellulitis of right lower limb (2) Sepsis Qualifiers: Sepsis type: sepsis due to unspecified organism Qualified Code(s): A41.9 - Sepsis, unspecified organism
[2017-12-27] MEDS ORDERED: Lidocaine PF 1% Inj 5 ML Syringe INFILTRATN ONE (12:00)
--- NOTE | 2017-12-27 16:27 | P.PNWCN ---
Wound Care Nurse Consult Description: Wound consult ordered by for wound management. Communicated with: Bonnie ORNELAS, Recommendation: 1. Elevate right lower extremity as often as possible. 2. Cleanse right lower extremity with normal saline or wound cleanser pat dry 3. Applied Calazime to periwounds and Optifoam AG non adhesive to open area. 4. Secure with rolled gauze /ford wrap. 5. Change dressing every other day or as needed fro exudate management. 6. When exudate decreases dressings changes can be done every 5 days . 7. Follow up with out patient wound center or home health agency. Additional information: Patient was seen today by clinical writer for wound management of right lower calf.Patient alert and oriented x4 sitting up in bed in no acute distress.Dressing was removed from right lower extremity prior to writers arrival.Patient noted to have +2 pitting edema to right lower extremity with induration noted to posterior calf measuring ~10cm x ~6cm warm to touch with dry scab noted to center in which patient states he hit metal arm of recliner in hospital room and it cut his leg open.no exudate noted from dry scab.Patient noted to have a partial thickness skin tear to medial right lower extremity with moderated amounts of serous exudate noted without odor.Wound base moist pink non granular tissue.Purple bulla locate to proximal calf ~0.5cm x ~0.5cm .Right lower extremity cleansed with normal saline pat dry Calazime cream applied to periwound and Optifoam AG non adhesive applied to open areas secured with rolled gauze and ford wrap.Patient tolerated wound care well though facial grimacing noted with wound care. Wound/Pressure Injury - Patient Status Premedicated for Pain Prior to Dressing Change: Yes - Wound Right Leg Wound Assessment: Ongoing Wound Type: Skin Tear Is This a Chronic Wound: No Requested from Provider a Wound Care Consult: No (Rob ORNELAS,[facility] seen 12/27) Wound Bed Appearance: Blisters - Intact, Edematous, Peeling Skin, [place], Shiny Surrounding Tissue Appearance: Edematous, Erythema, Indurated, Taut, Weeping Surrounding Tissue Temperature: Hot Drainage Description: Serosanguinous Drainage Amount: Moderate Drainage Odor: No Odor Dressing Status: Changed Cleansing Solution: Saline Primary Dressing: Optifoam AG Cover Dressing: Gauze Roll/Wrap Tape Type: FORD wrap Wound Dressing Change Date: 12/27/17
--- NOTE | 2017-12-27 18:29 | P.PNID ---
Subjective Remarks: no fever feels ok colonoscopy and EGD results noted Antibiotics: Amp/S Allergies/Adverse Reactions: Allergies No Known Allergies Allergy (Unverified 12/22/17 17:16) Objective Vital Signs 12/26/17 20:00 12/27/17 00:00 12/27/17 04:00 Temperature 97 F L 97.3 F L 98.4 F Pulse Rate 98 H 93 H 106 H Respiratory Rate 20 18 19 Blood Pressure 114/66 114/63 116/59 L Pulse Oximetry 96 95 95 12/27/17 08:00 12/27/17 10:34 12/27/17 12:00 Temperature 99.5 F 99.1 F 98.4 F Pulse Rate 112 H 102 H 112 H Respiratory Rate 22 18 22 Blood Pressure 136/65 92/51 L 109/77 Pulse Oximetry 94 L 97 22 L Intake & Output 12/26/17 12/27/17 12/27/17 18:59 06:59 18:59 Intake Total 1200 / 1200 1860 / 1860 400 / 400 Balance 1200 / 1200 1860 / 1860 400 / 400 Weight 159 kg Intake: IV 1200 / 1200 900 / 900 NS Inj 1,000 ML @ 100 mls/hr IV 1000 / 1000 800 / 800 .CONT .Q10H LUZMARIA Rx#:[id number] Unasyn Inj 3 GM In NS Inj 100 200 / 200 100 / 100 ML @ 200 mls/hr IV.SIG Q6H LUZMARIA Rx#:[id number] Oral 960 / 960 Anesthesia Amount 400 / 400 Other: # Voids 6 Date of Last Bowel Movement 12/24/17 12/27/17 12/27/17 # Bowel Movements 15 12/24/17 06:11 Blood - Peripheral Aerobic Blood Culture - Preliminary No growth in 3 days 12/24/17 06:11 Blood - Peripheral Anaerobic Blood Culture - Preliminary No growth in 3 days 12/24/17 06:17 Blood - Peripheral Aerobic Blood Culture - Preliminary No growth in 3 days 12/24/17 06:17 Blood - Peripheral Anaerobic Blood Culture - Preliminary No growth in 3 days 12/22/17 17:25 Blood - Peripheral Aerobic Blood Culture - Final Beta Strep not A,B or D 12/22/17 17:25 Blood - Peripheral Anaerobic Blood Culture - Final Beta Strep not A,B or D 12/22/17 17:05 Blood - Peripheral Aerobic Blood Culture - Final Beta Strep not A,B or D 12/22/17 17:05 Blood - Peripheral Anaerobic Blood Culture - Final Beta Strep not A,B or D Lab - Hematology Results 12/26/17 06:56 WBC 7.7 RBC 3.73 L Hgb 11.0 L Hct 32.9 L MCV 88.3 MCH 29.4 MCHC 33.3 RDW 14.2 Plt Count 154 MPV 8.1 Lab - Chemistry Results 12/25/17 12/26/17 12/26/17 19:47 06:56 08:25 Sodium 140 Potassium 3.7 Chloride 108 H Carbon Dioxide 23.4 Anion Gap 9 BUN 28 H Creatinine 1.62 H Estimated GFR 43 L POC Glucose 197 H 137 H Random Glucose 133 H Calcium 7.7 L 12/26/17 12/26/17 12/26/17 11:48 17:50 19:45 Sodium Potassium Chloride Carbon Dioxide Anion Gap BUN Creatinine Estimated GFR POC Glucose 141 H 94 189 H Random Glucose Calcium 12/27/17 12/27/17 12/27/17 08:12 08:20 13:04 Sodium 139 Potassium 3.9 Chloride 107 Carbon Dioxide 22.6 Anion Gap 9 BUN 19 H Creatinine 1.52 H Estimated GFR 46 L POC Glucose 221 H 184 H Random Glucose 188 H Calcium 7.9 L 12/27/17 17:33 Sodium Potassium Chloride Carbon Dioxide Anion Gap BUN Creatinine Estimated GFR POC Glucose 264 H Random Glucose Calcium Imaging: ITS Impressions Abdomen/Pelvis CT 12/22/17 17:16 CONCLUSION: Chest X-Ray 12/22/17 17:16 CONCLUSION: 1. Mild to moderate cardiomegaly. 2. No definite evidence of pneumonia. Venous Doppler Study 12/25/17 00:00 CONCLUSION: 1. Negative for deep venous thrombosis 2. 2.3 cm right inguinal lymph node, nonspecific Physical Exam: GENERAL: NAD, morbidly obese SKIN: Warm and dry. no Janeway lesions no splinter hmrggs CARDIOVASCULAR: Regular rate and rhythm. no murmurs rubs gallops RESPIRATORY: No accessory muscle use. Clear to auscultation. Breath sounds equal bilaterally. GASTROINTESTINAL: Abdomen soft, mildly diffusely tender, markedly distended. Hepatic and splenic margins not palpable. MUSCULOSKELETAL: Extremities without clubbing, cyanosis, or edema. No obvious deformities. NEUROLOGICAL: Awake and alert. No obvious cranial nerve deficits. Motor grossly within normal limits. Five out of 5 muscle strength in the arms and legs. Normal speech. RLE with dressing in place significant b/l LE edema, more prominent on R PSYCHIATRIC: cooperative Assessment and Plan - Plan Sepsis, streptococcal source is GI: pt had months of h/o diarrhea, abd pain an dvomiting CT is unrevealing colonoscopy with diverticulosis, polips EGD ulcers 2 D echo negative, but tech difficult - dc Unasyn start Rocephin. COmplete 14 days of abx - ok to dc once OPAT/HHC arranged repeat BC 2 weeks after abx completed CHIDI if recurrent bacteremia, fever ESR
--- NOTE | 2017-12-27 18:36 | P.DCO ---
Post Hospital Infusion Therapy Location of Infusion Therapy: Home Health Care IV Infusion Order Patient Weight: 159 kg - Diagnosis (1) Sepsis Code(s): A41.9 - Sepsis, unspecified organism - Administer Medication Ceftriaxone Dose: 2 grams IV Directions: q 24 hours Start Treatment: 12/28/17 Stop Treatment: 01/04/18 - Additional Information Venous Access: PICC Line Additional Instructions: [x] Peripheral flush and dressing changes per protocol [x] Implanted port and central line worker: * Implanted port: 10 ml Normal Saline followed by 5 ml Heparin 100 units/ml Heparin flush after each use and monthly to maintain. [] May leave port accessed during therapy. [] May leave peripheral site accessed for duration of therapy. [x] If patient has SOB or respiratory distress, check oxygen saturation. If less than 90% or clinical signs of respiratory distress, administer oxygen at 2 L/min. via nasal cannula and notify physician. [x] Anaphylaxis/Reaction orders: * Stop infusion. * Keep IV line open with saline flush. * Notify physician. * Monitor vital signs every 15 minutes until symptoms resolve. * Check Oxygen saturation; Oxygen at 2 L/min. via nasal cannula if less than 90% or clinical signs of respiratory distress. * Administer diphenhydramine (Benadryl) 25 mg IV STAT, (unless patient has received as pre-med). May repeat once, if necessary. * Solu-Cortef 250 mg IVP over 30-60 seconds, use 100 mg vials for each dissolution. * Epinephrine (1mg/1 ml) 0.3 mg subcutaneously or IVP now with any signs of respiratory distress. * Check with physician for new additional pre-med orders if patient is re- challenged or re-treated. [x] May remove PICC line when treatment complete, after confirming with Physician. [x] If the patient is admitted to the hospital, the ED, or transferred via [facility] , complete transfer form including medication reconciliation order sheet. Weekly Labs: CBC w/diff, CMP Additional Information: Blood cultures 2 weeka after antibiotics are completed and/or if fever 100.0 and above Allergies No Known Allergies Allergy (Unverified 12/22/17 17:16) (1) Sepsis Qualifiers: Sepsis type: sepsis due to unspecified organism Qualified Code(s): A41.9 - Sepsis, unspecified organism
[2017-12-27] MEDS: Insulin Detemir Inj 1,000 UNIT/10 ML Vial SQ SCH (22:09)
[2017-12-28 05:31] VITALS: O2SAT 95
[2017-12-28 09:05] LABS: Carbon Dioxide 24.4 meq/L (21.0-32.0); Potassium 3.7 meq/L (3.5-5.1)
[2017-12-28] MEDS: SPIRONOLACTONE PO SCH (09:06)
[2017-12-28] MEDS: Atenolol 50 MG Tablet PO SCH (09:06)
[2017-12-28] MEDS: HCTZ PO SCH (09:06)
[2017-12-28] MEDS: Insulin NovoLOG Aspart Correctional Sugar Inj SQ SCH ×2 (09:12→09:13)
[2017-12-28 09:38] VITALS: RESP 20
[2017-12-28 10:16] LABS: Hematocrit 33.5 % (39.0-51.0); Mean Corpuscular HGB Conc 32.8 % (32.0-36.0); Mean Corpuscular Hemoglobin 29.2 pg (27.0-34.0); Mean Corpuscular Volume 89.1 fL (80.0-100.0); Mean Platelet Volume 7.8 fL (7.0-11.0); Platelet Count 181 th/mm3 (150-450); Red Blood Count 3.76 mil/mm3 (4.50-5.90); Red Cell Distribution Width 14.7 % (11.6-17.2); White Blood Count 10.8 th/mm3 (4.0-11.0)
--- NOTE | 2017-12-28 11:16 | P.PNGI ---
Subjective Interval history: Pt denies nausea, vomiting, abdominal pain. No BM since GI procedures. Tolerating PO. <Chloe Moeller - Last Filed: 12/28/17 11:13> Physical Exam Vital signs: Vital Signs 12/27/17 12:00 12/27/17 16:00 12/27/17 20:00 Temperature 98.4 F 98.8 F 97.9 F Pulse Rate 112 H 115 H 117 H Respiratory Rate 22 20 18 Blood Pressure 109/77 129/58 L 112/51 L Pulse Oximetry 22 L 93 L 98 12/28/17 00:00 12/28/17 04:00 12/28/17 08:00 Temperature 98 F 98.4 F 98.0 F Pulse Rate 82 107 H 102 H Respiratory Rate 18 18 20 Blood Pressure 116/58 L 122/57 L 158/85 H Pulse Oximetry 93 L 95 95 Intake & Output 12/27/17 12/28/17 12/28/17 18:59 06:59 18:59 Intake Total 780 / 780 Output Total 250 / 250 Balance 780 / 780 -250 / -250 Weight 159 kg 159.9 kg Intake: Oral 380 / 380 Anesthesia Amount 400 / 400 Output: Urine 250 / 250 Other: # Voids 800 3 Date of Last Bowel Movement 12/27/17 12/27/17 12/27/17 # Bowel Movements 1 - Constitutional no acute distress - Routine HEENT Exam Head: Present: normocephalic, atraumatic - Routine Respiratory Exam Absent: accessory muscle use - Routine Abdominal Exam Present: soft, normoactive bowel sounds. Absent: tenderness - Routine Skin Exam Present: dry, warm - Routine Neurological Exam Present: alert, oriented X3 <Chloe Moeller - Last Filed: 12/28/17 11:13> Vital signs: Vital Signs 12/27/17 16:00 12/27/17 20:00 12/28/17 00:00 Temperature 98.8 F 97.9 F 98 F Pulse Rate 115 H 117 H 82 Respiratory Rate 20 18 18 Blood Pressure 129/58 L 112/51 L 116/58 L Pulse Oximetry 93 L 98 93 L 12/28/17 04:00 12/28/17 08:00 12/28/17 12:00 Temperature 98.4 F 98.0 F 97.9 F Pulse Rate 107 H 102 H 92 H Respiratory Rate 18 20 20 Blood Pressure 122/57 L 158/85 H 132/73 Pulse Oximetry 95 95 95 Intake & Output 12/27/17 12/28/17 12/28/17 18:59 06:59 18:59 Intake Total 780 / 780 Output Total 250 / 250 Balance 780 / 780 -250 / -250 Weight 159 kg 159.9 kg Intake: Oral 380 / 380 Anesthesia Amount 400 / 400 Output: Urine 250 / 250 Other: # Voids 800 3 Date of Last Bowel Movement 12/27/17 12/27/17 12/27/17 # Bowel Movements 1 <Jean Paul Alejandro - Last Filed: 12/28/17 14:57> Results - Labs CBC & Chem 7: 12/28/17 07:40 12/28/17 07:40 Laboratory Results - last 24 hr 12/27/17 12/27/17 12/27/17 13:04 17:33 20:16 WBC RBC Hgb Hct MCV MCH MCHC RDW Plt Count MPV ESR Sodium Potassium Chloride Carbon Dioxide Anion Gap BUN Creatinine Estimated GFR POC Glucose 184 H 264 H 168 H Random Glucose Calcium 12/28/17 12/28/17 12/28/17 07:40 07:40 07:40 WBC 10.8 RBC 3.76 L Hgb 11.0 L Hct 33.5 L MCV 89.1 MCH 29.2 MCHC 32.8 RDW 14.7 Plt Count 181 MPV 7.8 ESR 71 H Sodium 139 Potassium 3.7 Chloride 106 Carbon Dioxide 24.4 Anion Gap 9 BUN 16 Creatinine 1.43 H Estimated GFR 50 L POC Glucose Random Glucose 100 Calcium 8.0 L 12/28/17 08:13 WBC RBC Hgb Hct MCV MCH MCHC RDW Plt Count MPV ESR Sodium Potassium Chloride Carbon Dioxide Anion Gap BUN Creatinine Estimated GFR POC Glucose 118 H Random Glucose Calcium Microbiology 12/24/17 06:11 Blood - Peripheral Aerobic Blood Culture - Preliminary No growth in 4 days 12/24/17 06:11 Blood - Peripheral Anaerobic Blood Culture - Preliminary No growth in 4 days 12/24/17 06:17 Blood - Peripheral Aerobic Blood Culture - Preliminary No growth in 4 days 12/24/17 06:17 Blood - Peripheral Anaerobic Blood Culture - Preliminary No growth in 4 days <Chloe Moeller - Last Filed: 12/28/17 11:13> - Labs CBC & Chem 7: 12/28/17 07:40 12/28/17 07:40 Laboratory Results - last 24 hr 12/27/17 12/27/17 12/28/17 17:33 20:16 07:40 WBC RBC Hgb Hct MCV MCH MCHC RDW Plt Count MPV ESR 71 H Sodium Potassium Chloride Carbon Dioxide Anion Gap BUN Creatinine Estimated GFR POC Glucose 264 H 168 H Random Glucose Calcium 12/28/17 12/28/17 12/28/17 07:40 07:40 08:13 WBC 10.8 RBC 3.76 L Hgb 11.0 L Hct 33.5 L MCV 89.1 MCH 29.2 MCHC 32.8 RDW 14.7 Plt Count 181 MPV 7.8 ESR Sodium 139 Potassium 3.7 Chloride 106 Carbon Dioxide 24.4 Anion Gap 9 BUN 16 Creatinine 1.43 H Estimated GFR 50 L POC Glucose 118 H Random Glucose 100 Calcium 8.0 L 12/28/17 11:53 WBC RBC Hgb Hct MCV MCH MCHC RDW Plt Count MPV ESR Sodium Potassium Chloride Carbon Dioxide Anion Gap BUN Creatinine Estimated GFR POC Glucose 180 H Random Glucose Calcium Microbiology 12/24/17 06:11 Blood - Peripheral Aerobic Blood Culture - Preliminary No growth in 4 days 12/24/17 06:11 Blood - Peripheral Anaerobic Blood Culture - Preliminary No growth in 4 days 12/24/17 06:17 Blood - Peripheral Aerobic Blood Culture - Preliminary No growth in 4 days 12/24/17 06:17 Blood - Peripheral Anaerobic Blood Culture - Preliminary No growth in 4 days <Jean Paul Alejandro - Last Filed: 12/28/17 14:57> Assessment and Plan - Plan Plan 12-23-17 Assessment: - Diarrhea x 6 months, states intermittent but has more diarrhea stools than formed stools. (+) fecal urgency but denies fecal incontinence. Denies hematochezia and melena but states not pay that close attention. On a bad day reports around 3 stools a day. Denies abdominal pain and cramping. Also complaining of nausea and dry heaves, he states began since admission, denies hematemesis and coffee ground emesis Last colonoscopy in 2011, reports one polyp Last EGD in 2007, states normal exam CT abdomen and pelvis WO IV contrast --> Hepatic steatosis. Bilateral renal masses, may represent cysts, scattered colonic diverticula, prominent fat within the inguinal canals which could suggest hernias. No bowel is seen in these regions. C. Diff negative - Sepsis, blood cultures positive for gram positive cocci suggestive of streptococcus, final micro report is pending - A-fib- on Eliquis- last dosage was this morning - Elevated BGL- Known DM, takes Metformin for years, states blood sugars are in 200s at home, since hospitalization has been over 400, likely secondary to infection- this may be part of the etiology for nausea - SOB- chest x-ray showing mild to moderate cardiomegaly- echo pending - ANA on CKD 12/26/2017 patient is sitting up in the room, seems to be feeling better from a GI perspective. Currently receiving GoLYTELY prep for EGD colonoscopy tomorrow. Eliquis currently on hold. No obvious bleeding noted patient denies any nausea or vomiting or dysphasia. (12/28) Pt with no GI complaints at this time. Diarrhea and nausea resolved. S/P EGD and colonoscopy yesterday. EGD --> There was LA Class A esophagitis noted; biopsy was performed. There was erythematous gastritis in the gastric antrum; biopsy was performed. Multiple ulcers ranging between 3-5 mm in size were found in the 1st part of the duodenum; biopsies were taken. Colonoscopy --> Severe diverticulosis was noted in the sigmoid colon. Two sessile polyps were found in the descending colon; biopsy was performed using cold forceps. Internal and external hemorrhoids. Plan: - EGD and colon biopsies pending - Protonix - Fiber diet - Probiotics - Avoid seeds, nuts, popcorn - Avoid NSAIDs - Our service will sign off, have pt follow up with GI after DC Pt has been seen and examined by myself and Dr. Alejandro and this note is written on his behalf <Chloe Moeller - Last Filed: 12/28/17 11:13> - Plan Seen and examined, doing better. GI fu upon dc. Thank you - Attending Attestation The exam, history, and the medical decision-making described in the above note were completed with the assistance of the mid-level provider. I reviewed and agree with the findings presented. I attest that I had a [id number] encounter with the patient on the same day, and personally performed and documented my assessment and findings in the medical record. <Jean Paul Alejandro - Last Filed: 12/28/17 14:57>
--- NOTE | 2017-12-28 16:35 | P.DCO ---
- Home Health Nursing Order: Medical education, Signs/symptoms of disease process, Diabetic education , Wound care and dressing changes, Nursing assessment with vital signs, IV medication administration - Certification I have seen patient Johnny Ramirez on 12/28/17. My clinical findings support the need for the requested home health care services because: Limited mobility due to disease progression, Deconditioned with increased weakness, Medication compliance is questionable, Infection with risk of complications I certify that my clinical findings support that this patient is homebound because: Unsteady gait/balance, Unsafe to leave home unassisted, Unable to use public transportation (Rocephin IV infusions x 14 days, wound care to right ankle wound )
--- NOTE | 2017-12-28 16:40 | P.DS ---
Date of admission: 12/22/17 20:48 Primary care physician: Patsy Ernst MD Brief History from admission: 67-year-old male with a past medical history significant for atrial fibrillation , anticoagulated on Eliquis, chronic kidney disease, gout, CHF and type 2 diabetes mellitus presents to the emergency department for evaluation of generalized weakness, shortness of breath, abdominal pain, diarrhea and vomiting. Patient reports he has had diarrhea for several months however today he started vomiting. He reports a crampy abdominal pain that is associated with his diarrhea. He also complains of a cough and congestion with associated shortness of breath. He reports a fever at home to 103. He saw his primary care physician today who recommended further evaluation in the emergency department. The patient denies any chest pain. DS: Medications - Discharge Medications Prescriptions: ceftriaxone 2,000 mg IV Q24H 8 Days each DS: Summary Hospital Course: 67-year-old male who was admitted for right lower extremity cellulitis has undergone IV antibiotic treatment while here. Cultures grew out "beta strep not A, B or D". A few days ago he bumped his leg on a sharp portion of the recliner chair and sustained a wound to his right lateral ankle. He has been seen by wound care nurse and the wound is remaining clean. Infectious disease has determined that he will need 2 weeks of Rocephin via midline. He has had is midline placed and is ready to go home. Home healthcare has been arranged, for dressing changes, wound care, IV infusions. - Time Spent with Patient Total time spent providing and/or coordinating discharge services: - Quality: VTE Deep Vein Thrombosis/Pulmonary Embolism Present on Admission: No Exam Vital signs: Vital Signs 12/27/17 20:00 12/28/17 00:00 12/28/17 04:00 Temperature 97.9 F 98 F 98.4 F Pulse Rate 117 H 82 107 H Respiratory Rate 18 18 18 Blood Pressure 112/51 L 116/58 L 122/57 L Pulse Oximetry 98 93 L 95 12/28/17 08:00 12/28/17 12:00 Temperature 98.0 F 97.9 F Pulse Rate 102 H 92 H Respiratory Rate 20 20 Blood Pressure 158/85 H 132/73 Pulse Oximetry 95 95 Intake & Output 12/27/17 12/28/17 12/28/17 18:59 06:59 18:59 Intake Total 780 / 780 Output Total 250 / 250 Balance 780 / 780 -250 / -250 Weight 159 kg 159.9 kg Intake: Oral 380 / 380 Anesthesia Amount 400 / 400 Output: Urine 250 / 250 Other: # Voids 800 3 Date of Last Bowel Movement 12/27/17 12/27/17 12/27/17 # Bowel Movements 1 Results Procedures completed during hospitalization: none Completed studies during hospitalization: Pending at discharge 12/27/17 13:34 Surgical [PTH] Routine Labs on day of discharge: Labs from last 24 hours 12/28/17 12/28/17 12/28/17 11:53 08:13 07:40 WBC RBC Hgb Hct MCV MCH MCHC RDW Plt Count MPV ESR Sodium 139 Potassium 3.7 Chloride 106 Carbon Dioxide 24.4 Anion Gap 9 BUN 16 Creatinine 1.43 H Estimated GFR 50 L POC Glucose 180 H 118 H Random Glucose 100 Calcium 8.0 L 12/28/17 12/28/17 12/27/17 07:40 07:40 20:16 WBC 10.8 RBC 3.76 L Hgb 11.0 L Hct 33.5 L MCV 89.1 MCH 29.2 MCHC 32.8 RDW 14.7 Plt Count 181 MPV 7.8 ESR 71 H Sodium Potassium Chloride Carbon Dioxide Anion Gap BUN Creatinine Estimated GFR POC Glucose 168 H Random Glucose Calcium 12/27/17 17:33 WBC RBC Hgb Hct MCV MCH MCHC RDW Plt Count MPV ESR Sodium Potassium Chloride Carbon Dioxide Anion Gap BUN Creatinine Estimated GFR POC Glucose 264 H Random Glucose Calcium Preliminary micro results at discharge 12/24/17 06:11 Aerobic Blood Culture - Preliminary Blood - Peripheral No growth in 4 days Anaerobic Blood Culture - Preliminary No growth in 4 days 12/24/17 06:17 Aerobic Blood Culture - Preliminary Blood - Peripheral No growth in 4 days Anaerobic Blood Culture - Preliminary No growth in 4 days - Impressions ITS Impressions Abdomen/Pelvis CT 12/22/17 17:16 CONCLUSION: Chest X-Ray 12/22/17 17:16 CONCLUSION: 1. Mild to moderate cardiomegaly. 2. No definite evidence of pneumonia. Venous Doppler Study 12/25/17 00:00 CONCLUSION: 1. Negative for deep venous thrombosis 2. 2.3 cm right inguinal lymph node, nonspecific Discharge Plan - Discharge Disposition Patient Disposition: /Home Health Service - Discharge Condition Condition: Good - Discharge Order Discharge Orders: Discharge Order (Routine); Ordered 12/28/17 Ordered By: Rafi Santos - Physicians Team Primary Care Provider: Patsy Ernst Attending Provider: Rafi Santos Other Providers: Michelle Souza MD ; Quintin Licea MD ; Meghan Christianson ; [facility],Ag[facility]
[2017-12-28 18:25] VITALS: BP 134/70; PULSE 90; TEMP 98.1
== END 2017-12-28 19:35 | disposition home health service (06) ==
LOC: NEPC 16:04 → NEDA 20:48 → N04 22:13
PROVIDERS: ADMIT Family Medicine; ATTEND Family Medicine
PROC: COLONOS (2017-12-27 09:50)